=== PATIENT | male | born 1970 | race African-American/Black ===

== ENCOUNTER 2023-01-10 13:31 | Inpatient (IN) ==
[2023-01-10] MEDS ORDERED: SODIUM CHLORIDE 0.9% 1,000 ML IV ONE ×3 (14:27→18:34)
[2023-01-10 14:31] LABS: Basophils # (auto) 0.01 K/uL (0.00-0.20); Basophils % (auto) 0.1 %; Eosinophils # (auto) 0.01 K/uL (0.00-0.50); Eosinophils % (auto) 0.1 %; Hematocrit (blood only) 42.5 % (42.0-52.0); Hemoglobin 15.1 g/dl (14.0-18.0); Immature Granulocytes # (auto) 0.03 K/uL (0.01-0.20); Immature Granulocytes % (auto) 0.4 %; Lymphocytes # (auto) 1.12 K/uL (1.20-3.40); Lymphocytes % (auto) 16.5 %; Mean Corpuscular Hemoglobin 29.2 pg (25.0-34.0); Mean Corpuscular Hgb Conc 35.5 g/dL (32.0-36.0); Monocytes # (auto) 0.31 K/uL (0.11-0.59); Monocytes % (auto) 4.6 %; Neutrophils # (auto) 5.29 K/uL (1.40-6.50); Neutrophils % (auto) 78.3 %; Platelet Count 212 K/uL (130-400); RDW Coefficient of Variation 11.3 % (11.5-14.5); RDW Standard Deviation 33.8 fL (36.4-46.3); Red Blood Count 5.18 M/uL (4.70-6.10); White Blood Count 6.77 K/ul (4.8-10.8)
[2023-01-10] MEDS ORDERED: NovoLIN-R INSULIN PER UNIT CHARGE IV STA (14:35)
[2023-01-10 14:39] LABS: Partial Thromboplastin Ratio 0.8; Partial Thromboplastin Time 23.9 Seconds (21.0-31.0)
[2023-01-10 14:43] LABS: Base Excess VBG -0.2 mEq/L; HCO3 VBG 25 mmol/L; Oxygen Saturation VBG 88.9 %; PCO2 VBG 41 mmHg (38-50); PO2 VBG 57 mmHg; pH VBG 7.39 (7.36-7.41)
--- NOTE | 2023-01-10 14:48 | Emergency Department Note ---
Impression & Plan Hyperosmolar hyperglycemic state (HHS), Hyperglycemia due to type 2 diabetes mellitus, [place] (acute kidney injury), Acute hyperkalemia ED Provider Note Provider: Clifford Easley MD DATE OF SERVICE: 01/10/2023 CHIEF COMPLAINT: Urinating frequently, high blood sugar HISTORY OF PRESENT ILLNESS: Patient is a 52-year-old gentleman reported history of CHF presenting from the half-way due to 3 days of increased urination. Found to the present of high blood sugars and glucose in his urine. Patient states he has been having some increased weakness but denies any pain. Denies falls. Has been having lots of sugary drinks which is not abnormal for him. States he has no history of diabetes for the last 3 days has been urinating frequently. States he feels quite thirsty. Denies any swelling. States he feels generally weak and quite thirsty again. PAST MEDICAL HISTORY: As noted above MEDICATIONS: Reviewed medication list from the facility with metformin prescribed today but he has not taken the SOCIAL HISTORY: Inmate at the [facility] PHYSICAL EXAM: GENERAL: alert and oriented in no acute distress on stretcher guards at bedside, appears fatigued arousable but a little bit drowsy Head: normocephalic and atraumatic EYES: No injection, discharge or icterus. NECK: Trachea midline. ENT: Mucous membranes pink but dry in nature LUNGS: Airway patent. No retractions or tachypnea noted HEART: Regular rate and rhythm. No chest wall tenderness ABDOMEN: Soft and non-tender, without guarding or rebound. SKIN: Acyanotic, warm, dry, without rashes EXTREMITIES: Without swelling, tenderness or deformity NEUROLOGICAL: No focal deficits. No aphasia. No facial droop or slurred speech. EK bpm normal sinus rhythm. No PVC or PAC with left axis. QTc 415. No acute ST segment elevation noted. CONTINUOUS CARDIAC MONITORING: was ordered and showed a heart rate of 70s bpm in NSR Patient's laboratory studies and imaging reviewed. Differential includes Infection, dehydration, metabolic abnormality, hypo/hyperglycemia, electrolyte disturbance, anemia, hypoxia, cardiac sources, intracerebral event, toxicologic, neurologic, as well as other pathologies. IMPRESSION/MEDICAL DECISION MAKING: Denies fever. Reports urinary frequency and a bit of dysuria with high blood sugars found at the present. No history of diabetes. 3 days of symptoms. May be new onset diabetes. Not significantly tachypneic but somewhat weak in nature. History of CHF reported but appears volume down at this time. Ordered some IV fluid. Ordered some insulin. Blood work VBG A1c was ordered. Do not see any stigmata of significant CHF at this time and believe he again can receive IV fluids. Blood obtained here without significant anemia or leukocytosis. I doubt sepsis. VBG without acidosis and a normal bicarb is noted. I doubt this represents DKA with this finding. Urinalysis shows glucose some blood and trace ketones. Believe likely new onset diabetes with hyperglycemia. Laboratory studies returned with pseudohyponatremia that corrects to the low normal range in the 30- 35 area. Significant glucose elevation of 954. No evidence of hepatitis or pancreatitis with an anion gap Of 12 a creatinine 1.59 and a significant potassium of 6.5. Given this insulin drip was ordered. Ordered some Plasma- Lyte for continued IV hydration being cautious in light of his history by report of CHF. Did order gram calcium gluconate as well as an amp of bicarbonate for hyperkalemia but the insulin drip should help correct this as well. Given his frequent urination here including urinating onto the bed and frequently wetting himself [place] catheter was placed. Requires admission. Repeat BMP ordered. Is somewhat drowsy but arousable here and believe this likely represents more of an HHS picture. Develops a little bit of hypoxia but denying shortness of breath nursing placed on 2 L of nasal Supplementation. X-ray was ordered. Possibly some vascular congestion developing. Repeat BMP shows improving glucose but hyperkalemia persist. Given additional bicarb. Is maintained in the insulin drip and the hospitalist team is admitting to the hospital. I doubt the patient suffering from pneumonia or PE. DIAGNOSIS: HHS, [place], hyperkalemia, pseudohyponatremia DISPOSITION: Hospitalist will evaluate Patient was agreeable with this plan. Critical Care I have personally spent 33 minutes of critical care time in the direct m anagement of this patient. This includes bedside care, interpretation of diagnostic studies, and testing, discussion with consultants, patient, and other required patient management activities. These 33 minutes is in excess of all separately billable procedures. Past Med/Surg History Medical History HLD (hyperlipidemia) HTN (hypertension) Family History Mother Coronary heart disease Diabetes Other Kidney disease Social History Smoking Status: Current every day smoker Tobacco Type: E-cigarettes / Vaping Cigarettes Per Day: 1 e-cigarette per day; Hx Alcohol Use: No Hx Substance Use: Yes Last Used Substance: Unknown Preferred Language: Eritrean Communication Ability: Effective Cushion Gum Applicator Required: No Beliefs That Will Affect Care: None Current Living Situation: Other Current Living Situation Comment: correctional facility Assistive Devices: Glasses Allergies Allergies Allergy/AdvReac Type Severity Reaction Status Date / Time No Known Allergies Allergy Verified 01/10/23 16:06 Home Meds Home Medications Medication Instructions Recorded Confirmed atorvastatin 10 mg tablet (Lipitor) 10 mg PO HS 01/10/23 01/10/23 carvedilol 3.125 mg tablet 3.125 mg PO BID 01/10/23 01/10/23 lisinopril 20 mg tablet 20 mg PO DAILY 01/10/23 01/10/23 metformin 500 mg tablet 500 mg PO BID 01/10/23 01/10/23 Results & Data (ED) Vital Signs Vital Signs - 24 hr 01/10/23 13:41 01/10/23 14:26 01/10/23 14:29 Temperature 36.7 C Temperature Source Oral Pulse Rate 83 74 Pulse Rate [Apical] 78 Pulse Rate from SpO2 Sensor Respiratory Rate 16 18 22 Respiratory Effort / Characteristics Non-Labored Spontaneous Non-Labored Spontaneous Respiratory Depth Normal Normal Respiratory Pattern Regular Regular Blood Pressure 183/102 H Blood Pressure [Right Arm] 161/86 H Blood Pressure Mean 129 Blood Pressure Mean [Right Arm] 111 Blood Pressure Position Semi-fowlers Blood Pressure Position [Right Arm] Semi-fowlers Pulse Oximetry 98 Oxygen Delivery Method Room Air Sepsis Recent Fever Within 48 Hours No Sepsis New/Unexplained Change in Mental Status No Sepsis Action Taken by Nursing No Action Required 01/10/23 15:01 01/10/23 15:01 01/10/23 15:15 Temperature Temperature Source Pulse Rate 87 90 Pulse Rate [Apical] Pulse Rate from SpO2 Sensor Respiratory Rate 19 18 Respiratory Effort / Characteristics Respiratory Depth Respiratory Pattern Blood Pressure 173/92 H Blood Pressure [Right Arm] Blood Pressure Mean 122 Blood Pressure Mean [Right Arm] Blood Pressure Position Blood Pressure Position [Right Arm] Pulse Oximetry Oxygen Delivery Method Sepsis Recent Fever Within 48 Hours Sepsis New/Unexplained Change in Mental Status Sepsis Action Taken by Nursing 01/10/23 15:30 01/10/23 15:37 01/10/23 15:37 Temperature Temperature Source Pulse Rate 84 87 Pulse Rate [Apical] Pulse Rate from SpO2 Sensor Respiratory Rate 21 18 Respiratory Effort / Characteristics Respiratory Depth Respiratory Pattern Blood Pressure 147/81 H Blood Pressure [Right Arm] Blood Pressure Mean 99 Blood Pressure Mean [Right Arm] Blood Pressure Position Blood Pressure Position [Right Arm] Pulse Oximetry Oxygen Delivery Method Sepsis Recent Fever Within 48 Hours Sepsis New/Unexplained Change in Mental Status Sepsis Action Taken by Nursing 01/10/23 15:45 01/10/23 16:04 01/10/23 16:05 Temperature Temperature Source Pulse Rate 83 67 Pulse Rate [Apical] Pulse Rate from SpO2 Sensor 83 Respiratory Rate 23 20 Respiratory Effort / Characteristics Respiratory Depth Respiratory Pattern Blood Pressure 114/47 L Blood Pressure [Right Arm] Blood Pressure Mean 72 Blood Pressure Mean [Right Arm] Blood Pressure Position Blood Pressure Position [Right Arm] Pulse Oximetry 97 Oxygen Delivery Method Sepsis Recent Fever Within 48 Hours Sepsis New/Unexplained Change in Mental Status Sepsis Action Taken by Nursing 01/10/23 16:05 01/10/23 16:15 01/10/23 16:15 Temperature Temperature Source Pulse Rate 78 74 Pulse Rate [Apical] Pulse Rate from SpO2 Sensor 75 Respiratory Rate 19 19 Respiratory Effort / Characteristics Respiratory Depth Respiratory Pattern Blood Pressure 102/82 Blood Pressure [Right Arm] Blood Pressure Mean 86 Blood Pressure Mean [Right Arm] Blood Pressure Position Blood Pressure Position [Right Arm] Pulse Oximetry 92 Oxygen Delivery Method Sepsis Recent Fever Within 48 Hours Sepsis New/Unexplained Change in Mental Status Sepsis Action Taken by Nursing 01/10/23 16:30 01/10/23 16:30 Temperature Temperature Source Pulse Rate 80 Pulse Rate [Apical] Pulse Rate from SpO2 Sensor Respiratory Rate 18 Respiratory Effort / Characteristics Respiratory Depth Respiratory Pattern Blood Pressure 125/79 Blood Pressure [Right Arm] Blood Pressure Mean 94 Blood Pressure Mean [Right Arm] Blood Pressure Position Blood Pressure Position [Right Arm] Pulse Oximetry Oxygen Delivery Method Sepsis Recent Fever Within 48 Hours Sepsis New/Unexplained Change in Mental Status Sepsis Action Taken by Nursing Laboratory Data 01/10/23 13:47 01/10/23 13:47 Lab Results 01/10/23 01/10/23 01/10/23 Range/Units 13:41 13:47 13:47 WBC 6.77 (4.8-10.8) K/ul RBC 5.18 (4.70-6.10) M/uL Hgb 15.1 (14.0-18.0) g/dl Hct 42.5 (42.0-52.0) % MCV 82.0 (80.0-100.0) fL MCH 29.2 (25.0-34.0) pg MCHC 35.5 (32.0-36.0) g/dL RDW Std Deviation 33.8 L (36.4-46.3) fL RDW Coeff of Martina 11.3 L (11.5-14.5) % Plt Count 212 (130-400) K/uL MPV 13.0 H (9.4-12.4) fL Immature Gran % (Auto) 0.4 % Neut % (Auto) 78.3 % Lymph % (Auto) 16.5 % [place] % (Auto) 4.6 % Eos % (Auto) 0.1 % Baso % (Auto) 0.1 % Neut # (Auto) 5.29 (1.40-6.50) K/uL Lymph # (Auto) 1.12 L (1.20-3.40) K/uL [place] # (Auto) 0.31 (0.11-0.59) K/uL Eos # (Auto) 0.01 (0.00-0.50) K/uL Baso # (Auto) 0.01 (0.00-0.20) K/uL Immature Gran # (Auto) 0.03 (0.01-0.20) K/uL APTT 23.9 (21.0-31.0) Seconds PTT Ratio 0.8 VBG pH (7.36-7.41) VBG pCO2 (38-50) mmHg VBG pO2 mmHg VBG HCO3 mmol/L VBG O2 Saturation % VBG Base Excess mEq/L Sodium (136-145) mmol/L Potassium (3.5-5.1) mmol/L Chloride (98-107) mmol/L Carbon Dioxide (21-32) mmol/L Anion Gap (3-11) BUN (6-23) mg/dl Creatinine (0.6-1.4) mg/dl Est Cr Clr Drug Dosing ml/min Est GFR ( Amer) ml/min Est GFR (Non-Af Amer) ml/min BUN/Creatinine Ratio (10-20) Glucose (70-99(Fasting)) mg/dl POC Glucose > 600 H* (70-99) mg/dl Osmolality (280-300) mOsm/kg Calcium (8.6-10.3) mg/dl Phosphorus (2.5-4.9) mg/dl Magnesium (1.7-2.4) mg/dl Total Bilirubin (0.2-1.0) mg/dl AST (13-39) U/L ALT (7-52) U/L Alkaline Phosphatase (34-104) U/L Total Protein (6.0-8.3) gm/dl Albumin (3.4-5.0) gm/dl Globulin (2.5-4.0) gm/dl Albumin/Globulin Ratio (0.9-2) Lipase (11-82) U/L Urine Color Urine Appearance (Clear) Urine pH (4.5-7.5) Ur Specific Daisy (1.000-1.030) Urine Protein (Negative) Urine Glucose (UA) (Negative) Urine Ketones (Negative) Urine Blood (Negative) Urine Nitrite (Negative) Urine Bilirubin (Negative) Urine Urobilinogen (Negative) Ur Leukocyte Esterase (Negative) Urine WBC (Auto) (0-5) /hpf Urine RBC (Auto) (0-4) /hpf U Hyaline Cast (Auto) (0-5) /lpf U Epithel Cells (Auto) (0-5) /lpf Urine Bacteria (Auto) (Negative) 01/10/23 01/10/23 01/10/23 Range/Units 13:47 13:47 14:07 WBC (4.8-10.8) K/ul RBC (4.70-6.10) M/uL Hgb (14.0-18.0) g/dl Hct (42.0-52.0) % MCV (80.0-100.0) fL MCH (25.0-34.0) pg MCHC (32.0-36.0) g/dL RDW Std Deviation (36.4-46.3) fL RDW Coeff of Martina (11.5-14.5) % Plt Count (130-400) K/uL MPV (9.4-12.4) fL Immature Gran % (Auto) % Neut % (Auto) % Lymph % (Auto) % [place] % (Auto) % Eos % (Auto) % Baso % (Auto) % Neut # (Auto) (1.40-6.50) K/uL Lymph # (Auto) (1.20-3.40) K/uL [place] # (Auto) (0.11-0.59) K/uL Eos # (Auto) (0.00-0.50) K/uL Baso # (Auto) (0.00-0.20) K/uL Immature Gran # (Auto) (0.01-0.20) K/uL APTT (21.0-31.0) Seconds PTT Ratio VBG pH (7.36-7.41) VBG pCO2 (38-50) mmHg VBG pO2 mmHg VBG HCO3 mmol/L VBG O2 Saturation % VBG Base Excess mEq/L Sodium 116 L* (136-145) mmol/L Potassium 6.5 H* (3.5-5.1) mmol/L Chloride 82 L (98-107) mmol/L Carbon Dioxide 22 (21-32) mmol/L Anion Gap 12 H (3-11) BUN 46 H (6-23) mg/dl Creatinine 1.59 H (0.6-1.4) mg/dl Est Cr Clr Drug Dosing 61.0 ml/min Est GFR ( Amer) 57.4 ml/min Est GFR (Non-Af Amer) 49.5 ml/min BUN/Creatinine Ratio 28.9 H (10-20) Glucose 954 H* (70-99(Fasting)) mg/dl POC Glucose (70-99) mg/dl Osmolality 317 H (280-300) mOsm/kg Calcium 9.3 (8.6-10.3) mg/dl Phosphorus 4.9 (2.5-4.9) mg/dl Magnesium 2.4 (1.7-2.4) mg/dl Total Bilirubin 0.9 (0.2-1.0) mg/dl AST 18 (13-39) U/L ALT 34 (7-52) U/L Alkaline Phosphatase 57 (34-104) U/L Total Protein 7.6 (6.0-8.3) gm/dl Albumin 4.2 (3.4-5.0) gm/dl Globulin 3.4 (2.5-4.0) gm/dl Albumin/Globulin Ratio 1.2 (0.9-2) Lipase 88 H (11-82) U/L Urine Color Yellow Urine Appearance Clear (Clear) Urine pH 5.5 (4.5-7.5) Ur Specific Daisy 1.027 (1.000-1.030) Urine Protein Negative (Negative) Urine Glucose (UA) 3+ H (Negative) Urine Ketones Trace H (Negative) Urine Blood 2+ H (Negative) Urine Nitrite Negative (Negative) Urine Bilirubin Negative (Negative) Urine Urobilinogen Negative (Negative) Ur Leukocyte Esterase Negative (Negative) Urine WBC (Auto) 0 (0-5) /hpf Urine RBC (Auto) 5-10 H (0-4) /hpf U Hyaline Cast (Auto) 0 (0-5) /lpf U Epithel Cells (Auto) 0-5 (0-5) /lpf Urine Bacteria (Auto) Negative (Negative) 01/10/23 01/10/23 01/10/23 Range/Units 14:32 15:35 16:25 WBC (4.8-10.8) K/ul RBC (4.70-6.10) M/uL Hgb (14.0-18.0) g/dl Hct (42.0-52.0) % MCV (80.0-100.0) fL MCH (25.0-34.0) pg MCHC (32.0-36.0) g/dL RDW Std Deviation (36.4-46.3) fL RDW Coeff of Martina (11.5-14.5) % Plt Count (130-400) K/uL MPV (9.4-12.4) fL Immature Gran % (Auto) % Neut % (Auto) % Lymph % (Auto) % [place] % (Auto) % Eos % (Auto) % Baso % (Auto) % Neut # (Auto) (1.40-6.50) K/uL Lymph # (Auto) (1.20-3.40) K/uL [place] # (Auto) (0.11-0.59) K/uL Eos # (Auto) (0.00-0.50) K/uL Baso # (Auto) (0.00-0.20) K/uL Immature Gran # (Auto) (0.01-0.20) K/uL APTT (21.0-31.0) Seconds PTT Ratio VBG pH 7.39 (7.36-7.41) VBG pCO2 41 (38-50) mmHg VBG pO2 57 mmHg VBG HCO3 25 mmol/L VBG O2 Saturation 88.9 % VBG Base Excess -0.2 mEq/L Sodium 125 L D (136-145) mmol/L Potassium 6.7 H* (3.5-5.1) mmol/L Chloride 88 L (98-107) mmol/L Carbon Dioxide 29 (21-32) mmol/L Anion Gap 8 (3-11) BUN 45 H (6-23) mg/dl Creatinine 1.66 H (0.6-1.4) mg/dl Est Cr Clr Drug Dosing 58.4 ml/min Est GFR ( Amer) 54.5 ml/min Est GFR (Non-Af Amer) 47.0 ml/min BUN/Creatinine Ratio 27.1 H (10-20) Glucose 655 H* (70-99(Fasting)) mg/dl POC Glucose > 600 H* (70-99) mg/dl Osmolality (280-300) mOsm/kg Calcium 9.9 (8.6-10.3) mg/dl Phosphorus (2.5-4.9) mg/dl Magnesium (1.7-2.4) mg/dl Total Bilirubin (0.2-1.0) mg/dl AST (13-39) U/L ALT (7-52) U/L Alkaline Phosphatase (34-104) U/L Total Protein (6.0-8.3) gm/dl Albumin (3.4-5.0) gm/dl Globulin (2.5-4.0) gm/dl Albumin/Globulin Ratio (0.9-2) Lipase (11-82) U/L Urine Color Urine Appearance (Clear) Urine pH (4.5-7.5) Ur Specific Daisy (1.000-1.030) Urine Protein (Negative) Urine Glucose (UA) (Negative) Urine Ketones (Negative) Urine Blood (Negative) Urine Nitrite (Negative) Urine Bilirubin (Negative) Urine Urobilinogen (Negative) Ur Leukocyte Esterase (Negative) Urine WBC (Auto) (0-5) /hpf Urine RBC (Auto) (0-4) /hpf U Hyaline Cast (Auto) (0-5) /lpf U Epithel Cells (Auto) (0-5) /lpf Urine Bacteria (Auto) (Negative) Administered Medications Carvedilol (Carvedilol 3.125 Mg Tab) 3.125 mg PO BIDM [facility] Stop: 02/09/23 20:59 Last Admin: 01/10/23 19:39 Dose: 3.125 mg Documented By: MejiaT Enoxaparin Sodium (Enoxaparin Inj 40 Mg/0.4 Ml Syr) 40 mg SQ HS [facility] Stop: 02/09/23 20:59 Last Admin: 01/10/23 19:40 Dose: 40 mg Documented By: SILVESTRE Insulin Human Regular 250 (units/ Sodium Chloride) 250 mls @ 4.2 mls/hr IV .Q24H [facility]; Protocol Stop: 02/09/23 15:44 Last Titration: 01/10/23 20:30 Dose: 3.4 units/hr, 3.4 mls/hr Documented By: SILVESTRE Co-signed By: VK Titration: 01/10/23 19:34 Dose: 4.2 units/hr, 4.2 mls/hr Documented By: JPaula Co-signed By: VK Titration: 01/10/23 19:05 Dose: 5.2 units/hr, 5.2 mls/hr Documented By: SILVESTRE Co-signed By: ES Titration: 01/10/23 18:11 Dose: 5.2 units/hr, 5.2 mls/hr Documented By: DS Co-signed By: LCD Titration: 01/10/23 17:35 Dose: 4.3 units/hr, 4.3 mls/hr Documented By: JESSICA Co-signed By: AB Admin: 01/10/23 16:13 Dose: 3.6 units/hr, 3.6 mls/hr Documented By: DS Co-signed By: AP Sodium Chloride (Nss) 1,000 mls @ 125 mls/hr IV .Q8H NUNU Stop: 02/09/23 17:29 Last Admin: 01/10/23 20:21 Dose: 125 mls/hr Documented By: SILVESTRE Insulin Aspart (Insulin Aspart Per Unit Charge) 0 units SC ACHS NUNU Stop: 02/09/23 16:29 Last Admin: 01/10/23 19:59 Dose: Not Given Documented By: Admin: 01/10/23 19:38 Dose: Not Given Documented By: SILVESTRE Discontinued Medications Sodium Chloride (Nss) 1,000 mls @ 999 mls/hr IV .Q1H1M ONE Stop: 01/10/23 15:27 Last Infusion: 01/10/23 16:42 Dose: 0 mls/hr Documented By: Admin: 01/10/23 14:47 Dose: 999 mls/hr Documented By: WALLACE Parenteral Electrolytes (Plasma-Lyte A Ph 7.4) 1,000 mls @ 125 mls/hr IV .Q8H NUNU Stop: 02/09/23 15:44 Last Admin: 01/10/23 16:48 Dose: 125 mls/hr Documented By: JESSICA Calcium Gluconate () 1,000 mg in 60 mls @ 240 mls/hr IV NOW STA Stop: 01/10/23 16:09 Last Infusion: 01/10/23 17:53 Dose: 0 mls/hr Documented By: Admin: 01/10/23 16:42 Dose: 240 mls/hr Documented By: JESSICA Sodium Chloride (Nss) 1,000 mls @ 999 mls/hr IV .Q1H1M ONE Stop: 01/10/23 16:57 Last Infusion: 01/10/23 17:53 Dose: 0 mls/hr Documented By: Admin: 01/10/23 16:42 Dose: 999 mls/hr Documented By: JESSICA Sodium Chloride (Nss) 1,000 mls @ 999 mls/hr IV .Q1H1M ONE Stop: 01/10/23 19:34 Last Admin: 01/10/23 19:25 Dose: 999 mls/hr Documented By: SILVESTRE Insulin Human Regular (Novolin-R Insulin Per Unit Charge) 10 units IV NOW STA Stop: 01/10/23 14:36 Last Admin: 01/10/23 14:47 Dose: 10 units Documented By: WALLACE Co-signed By: PONCE Miscellaneous (Insulin Protocol Goal Range ) 1 each N/A ONE ONE Stop: 01/10/23 15:40 Last Admin: 01/10/23 19:37 Dose: Not Given Documented By: SILVESTRE Miscellaneous (Severe Stress Level ) 1 each N/A ONE ONE Stop: 01/10/23 15:40 Last Admin: 01/10/23 19:38 Dose: Not Given Documented By: SILVESTRE Sodium Bicarbonate (Sodium Bicarb 8.4% Inj 50 Meq/50 Ml Syr) 50 meq IV NOW STA Stop: 01/10/23 15:56 Last Admin: 01/10/23 16:42 Dose: 50 meq Documented By: JESSICA Sodium Bicarbonate (Sodium Bicarb 8.4% Inj 50 Meq/50 Ml Syr) 50 meq IV NOW STA Stop: 01/10/23 17:28 Last Admin: 01/10/23 18:12 Dose: 50 meq Documented By: JESSICA Imaging Data Radiologist's Impression: Chest X-Ray 01/10/23 16:29 SINGLE VIEW CHEST CLINICAL HISTORY: Hypoxia. FINDINGS: An AP, portable, upright chest radiograph is obtained. No prior studies are available for comparison at the time of dictation. The heart appears mildly enlarged. There is prominence of the pulmonary vasculature. No airspace consolidation or large pleural effusion is identified. No pneumothorax is seen. The bony thorax is grossly intact. IMPRESSION: 1. The heart appears mildly enlarged and there is prominence of the pulmonary vasculature. Correlate clinically for evidence of fluid overload/congestive change. 2. No airspace consolidation or large pleural effusion is identified. ACT 112: Negative or not required by law. Electronically signed by: Cyrus Melo M.D. 01/10/2023 4:50 PM Discharge Plan Visit Data Chief Complaint: Hyperglycemia Stated Complaint: HYPERGLYCEMIA, URINARY SX ED Provider: Clifford Easley Discharge Problem: Hyperosmolar hyperglycemic state (HHS), Hyperglycemia due to type 2 diabetes mellitus, [place] (acute kidney injury), Acute hyperkalemia Patient Disposition: Being Evaluated by Hospitalist Condition: Fair Discharge Instructions Interventions: ED Discharge Assessment Last Done: 01/10/23 20:30 Hyperglycemia due to type 2 diabetes mellitus Qualifiers: Diabetes mellitus correction insulin use: with exterminator termite use Qualified Code(s): E11.65 - Type 2 diabetes mellitus with hyperglycemia
[2023-01-10 14:50] LABS: Appearance Urine Clear (Clear); Bilirubin Urine Negative (Negative); Blood Urine 2+ (Negative); Color Urine Yellow; Glucose Urine UA 3+ (Negative); Ketones Urine Trace (Negative); Leukocyte Esterase Urine Negative (Negative); Nitrite Urine Negative (Negative); Protein Urine Negative (Negative); Specific Gravity Urine 1.027 (1.000-1.030); Urobilinogen Urine Negative (Negative); pH Urine 5.5 (4.5-7.5)
[2023-01-10 15:24] LABS: Bacteria Urine Automated Negative (Negative); Cast Urine Automated 0 /lpf (0-5); Epithelial Cell Urine Auto 0-5 /lpf (0-5); WBC Urine Automated 0 /hpf (0-5)
[2023-01-10 15:34] LABS: Albumin Globulin Ratio 1.2 (0.9-2); Albumin Level 4.2 gm/dl (3.4-5.0); BUN Creatinine Ratio 28.9 (10-20); Bilirubin,Total 0.9 mg/dl (0.2-1.0); Calcium 9.3 mg/dl (8.6-10.3); Est GFR (African American) 57.4 ml/min; Est GFR (Non-African American) 49.5 ml/min; Globulin 3.4 gm/dl (2.5-4.0); Potassium 6.5 mmol/L (3.5-5.1); Total Protein 7.6 gm/dl (6.0-8.3)
[2023-01-10] MEDS ORDERED: STAT IV Infusion **Titration per Protocol STA (15:39)
[2023-01-10] MEDS ORDERED: INSULIN PROTOCOL GOAL RANGE ONE (15:39)
[2023-01-10] MEDS ORDERED: SEVERE STRESS LEVEL ONE (15:39)
[2023-01-10] MEDS ORDERED: GLUCOSE 40% GEL 15 GM TUBE PO PRN (15:45)
[2023-01-10] MEDS ORDERED: GLUCAGON FOR INJ 1 MG VIAL IM PRN (15:45)
[2023-01-10] MEDS ORDERED: CARBOHYDRATES FOR HYPOGLYCEMIA PO PRN (15:45)
[2023-01-10] MEDS ORDERED: DEXTROSE 50% 50 ML SYRINGE IV PRN (15:45)
[2023-01-10] MEDS ORDERED: PLASMA-LYTE A 1,000 ML IV SCH (15:45)
[2023-01-10] MEDS ORDERED: GLUCOSE 10 TAB/TUBE PO PRN (15:45)
[2023-01-10] MEDS ORDERED: SODIUM BICARB 8.4% INJ 50 MEQ/50 ML SYR IV STA ×2 (15:55→17:27)
[2023-01-10] MEDS ORDERED: CALCIUM GLUCONATE 1,000 MG/60 ML BAG IV STA (15:55)
[2023-01-10] MEDS: INSULIN REGULAR 250 UNITS in SODIUM CHLORIDE 0.9% 247.5 ML IV SCH (16:13)
[2023-01-10 16:17] LABS: Magnesium 2.4 mg/dl (1.7-2.4)
[2023-01-10 16:22] LABS: Phosphorus 4.9 mg/dl (2.5-4.9)
--- NOTE | 2023-01-10 16:35 | History & Physical Report ---
Date of Service January 10, 2023 Assessment & Plan (1) Hyperosmolar hyperglycemic state (HHS): (2) Pseudohyponatremia: (3) Acute hyperkalemia: (4) CAROLINA (acute kidney injury): (5) Dehydration: (6) HTN (hypertension): (7) HLD (hyperlipidemia): (8) Hyperglycemia due to type 2 diabetes mellitus: Plan 52 yr old M who has a significant PMH of HTN and HLD presents to ED 2/2 frequent urinating, difficulty urinating and incontinence over last 3 days. He is incarcerated at [facility] longterm. He states he was diagnosed with type 2 diabetes 3 weeks ago. HHS T2DM -newly dx 3 weeks ago admit to ICU 2/2 HHS and electrolyte derangements requiring freq lab monitoring continue Insulin gtt per protocol, glycemic pharmacist consulted consult Dr. Baltazar, energy management specialist, please refer to ICU consultation regarding further assessment and plan serial labs NSS 125cc/hr, switch to 1/2 NSS + 20meq KCL when K below 5.1 pending fluid orders also for when pt reaches goal range of 250-[address], strict intake and out admitting CXR ? congestive change, cardiomegaly will obtain BNP, and repeat CXR in a.m. monitor volume status closely in setting of hydration neurochecks q4 Acute Hyperkalemia K initially 6.5, repeat 4 hrs later 6.7 he did receive 1g calcium gluconate and 50meq amp of bicarb without much improvement pt received insulin bolus, gtt, anticipate further reduction of K with reduction of blood sugar switch fluids to NSS repeat K at 1830 due to persistent electrolyte derangements will admit to ICU for further management CAROLINA unknown baseline cr; however currently elevated to 1.66 suspect in setting of dehydration serial bmp continue IVF ealry cath in place Pseudohyponatremia initial ma 116, corrected 130 repeat corrected 135 continue to monitor HTN on lisinopril as outpatient chronic, stable HLD continue statin chronic, stable DVT ppx: Lovenox, monitor renal function if worsens may need to convert to heparin FULL CODE Dispo: from [facility], to return once medically stable Pt was seen and examined in collaboration with Dr. Lorenzo, please see addendum History of Present Illness Chief Complaint: Frequent urination Primary Care Provider: [facility] 52 yr old M who has a significant PMH of HTN and HLD presents to ED 2/2 frequent urinating, difficulty urinating and incontinence over last 3 days. He is incarcerated at [facility]. He states he was diagnosed with type 2 diabetes 3 weeks ago. He was just prescribed metformin but has not yet started it. He states he was told he was, "borderline." He states symptoms started approximately 3 days ago whenever he developed frequent urination and inability to hold urine. "It was just running out." He states he was urinating on himself. He denies any recent illness, fever, chills, sweats, lightheadedness, dizziness, chest pain, shortness of breath, vomiting or diarrhea. He does admit to being slightly nauseated. He is very drowsy and states that he has not slept well over the last 2 days due to urinating. In ED patient found to have a blood sugar of 100. He was also found to have a pseudohyponatremia with a sodium of 116 but corrected to 130. He had hyperkalemia with a potassium of 6.5 and an CAROLINA with a creatinine 1.59. In ED he received 1 L of fluid bolus and started on maintenance Plasma-Lyte. He also received 1 g calcium gluconate and sodium bicarb for hyperkalemia. He was started on insulin bolus and drip. ROS slightly unreliable due to pt drowsy state. Unable to obtain surgical/social/FH other than pt being incarcerated. Allergies Allergy/AdvReac Type Severity Reaction Status Date / Time No Known Allergies Allergy Verified 01/10/23 16:06 Home Medications Medication Instructions Recorded Confirmed Type atorvastatin 10 mg tablet (Lipitor) 10 mg PO HS 01/10/23 01/10/23 History carvedilol 3.125 mg tablet 3.125 mg PO BID 01/10/23 01/10/23 History lisinopril 20 mg tablet 20 mg PO DAILY 01/10/23 01/10/23 History metformin 500 mg tablet 500 mg PO BID 01/10/23 01/10/23 History Past Med/Surg History Medical History HLD (hyperlipidemia) HTN (hypertension) Family History Mother Coronary heart disease Diabetes Other Kidney disease Social History Smoking Status: Current every day smoker Tobacco Type: E-cigarettes / Vaping Cigarettes Per Day: 1 e-cigarette per day; Hx Alcohol Use: No Hx Substance Use: Yes Last Used Substance: Unknown Preferred Language: [place] Communication Ability: Effective Tea Blender Required: No Beliefs That Will Affect Care: None Current Living Situation: Other Current Living Situation Comment: correctional facility Assistive Devices: Glasses Review of Systems Review of Systems: All systems reviewed & are unremarkable except as noted in HPI & below Physical Exam Physical Exam: Please refer to Dr. Lorenzo addendum for physical exam findings. Results & Data Results & Data Vital Signs (Past 12 Hours) Vital Signs Temp Pulse Pulse Resp BP BP Pulse Ox 01/10/23 14:26 78 18 161/86 H 01/10/23 13:41 36.7 C 83 16 183/102 H 98 O2 Del Method 01/10/23 14:26 01/10/23 13:41 Room Air Diagnostic Findings Chest X-Ray 01/10/23 16:29 SINGLE VIEW CHEST CLINICAL HISTORY: Hypoxia. FINDINGS: An AP, portable, upright chest radiograph is obtained. No prior studies are available for comparison at the time of dictation. The heart appears mildly enlarged. There is prominence of the pulmonary vasculature. No airspace consolidation or large pleural effusion is identified. No pneumothorax is seen. The bony thorax is grossly intact. IMPRESSION: 1. The heart appears mildly enlarged and there is prominence of the pulmonary vasculature. Correlate clinically for evidence of fluid overload/congestive change. 2. No airspace consolidation or large pleural effusion is identified. ACT 112: Negative or not required by law. Electronically signed by: Cyrus Melo M.D. 01/10/2023 4:50 PM Medications Administered Medication List Insulin Human Regular 250 (units/ Sodium Chloride) 250 mls @ 3.6 mls/hr IV .Q24H NUNU; Protocol Stop: 02/09/23 15:44 Last Admin: 01/10/23 16:13 Dose: 3.6 units/hr, 3.6 mls/hr Documented By: JESSICA Co-signed By: JONEL Parenteral Electrolytes (Plasma-Lyte A Ph 7.4) 1,000 mls @ 125 mls/hr IV .Q8H NUNU Stop: 02/09/23 15:44 Last Admin: 01/10/23 16:48 Dose: 125 mls/hr Documented By: JESSICA Discontinued Medications Sodium Chloride (Nss) 1,000 mls @ 999 mls/hr IV .Q1H1M ONE Stop: 01/10/23 15:27 Last Infusion: 01/10/23 16:42 Dose: 0 mls/hr Documented By: Admin: 01/10/23 14:47 Dose: 999 mls/hr Documented By: WALLACE Calcium Gluconate () 1,000 mg in 60 mls @ 240 mls/hr IV NOW STA Stop: 01/10/23 16:09 Last Admin: 01/10/23 16:42 Dose: 240 mls/hr Documented By: JESSICA Sodium Chloride (Nss) 1,000 mls @ 999 mls/hr IV .Q1H1M ONE Stop: 01/10/23 16:57 Last Admin: 01/10/23 16:42 Dose: 999 mls/hr Documented By: JESSICA Insulin Human Regular (Novolin-R Insulin Per Unit Charge) 10 units IV NOW STA Stop: 01/10/23 14:36 Last Admin: 01/10/23 14:47 Dose: 10 units Documented By: WALLACE Co-signed By: PONCE Sodium Bicarbonate (Sodium Bicarb 8.4% Inj 50 Meq/50 Ml Syr) 50 meq IV NOW STA Stop: 01/10/23 15:56 Last Admin: 01/10/23 16:42 Dose: 50 meq Documented By: JESSICA ECG Rate (beats per minute): 75 Rhythm: normal sinus Additional Comments: left axis deviation, no st or t wave change COVID-19 Results Results COVID-19 Adm Lab Results: RBC 5.18 M/uL (4.70-6.10) 01/10/23 WBC 6.77 K/ul (4.8-10.8) 01/10/23 Hgb 15.1 g/dl (14.0-18.0) 01/10/23 Hct 42.5 % (42.0-52.0) 01/10/23 Plt Count 212 K/uL (130-400) 01/10/23 Neutrophils (%) (Auto) 78.3 % 01/10/23 Lymphocytes (%) (Auto) 16.5 % 01/10/23 Monocytes # (Auto) 0.31 K/uL (0.11-0.59) 01/10/23 Eosinophils # (Auto) 0.01 K/uL (0.00-0.50) 01/10/23 Immature Granulocyte % (Auto) 0.4 % 01/10/23 Neutrophils # (Auto) 5.29 K/uL (1.40-6.50) 01/10/23 Lymphocytes # (Auto) 1.12 K/uL (1.20-3.40) L 01/10/23 Monocytes # (Auto) 0.31 K/uL (0.11-0.59) 01/10/23 Eosinophils # (Auto) 0.01 K/uL (0.00-0.50) 01/10/23 Basophils # (Auto) 0.01 K/uL (0.00-0.20) 01/10/23 Immature Granulocyte # (Auto) 0.03 K/uL (0.01-0.20) 3 Na 125 mmol/L (136-145) L 01/10/23 K 6.7 mmol/L (3.5-5.1) H* 01/10/23 Cl 88 mmol/L (98-107) L 01/10/23 CO2 29 mmol/L (21-32) 01/10/23 Anion Gap 8 (3-11) 01/10/23 BUN 45 mg/dl (6-23) H 01/10/23 Creatinine 1.66 mg/dl (0.6-1.4) H 01/10/23 BUN/Creatinine Ratio 27.1 (10-20) H 01/10/23 Glucose Level 655 mg/dl (70-99(Fasting)) H* 01/10/23 Ca 9.9 mg/dl (8.6-10.3) 01/10/23 Phosphorus Level 4.9 mg/dl (2.5-4.9) 01/10/23 Total Bilirubin 0.9 mg/dl (0.2-1.0) 01/10/23 AST/SGOT 18 U/L (13-39) 01/10/23 ALT/SGPT 34 U/L (7-52) 01/10/23 Alkaline Phosphatase 57 U/L (34-104) 01/10/23 Total Protein 7.6 gm/dl (6.0-8.3) 01/10/23 Albumin 4.2 gm/dl (3.4-5.0) 01/10/23 Globulin 3.4 gm/dl (2.5-4.0) 01/10/23 Albumin/Globulin Ratio 1.2 (0.9-2) 01/10/23 PTT 23.9 Seconds (21.0-31.0) 01/10/23 SARS-CoV-2, RNA, NAAT NEGATIVE (NEGATIVE) 01/10/23 Chest X-Ray 01/10/23 Code Status & VTE Plan Code Status FULL CODE Supervising Physician Co-Signing Physician Notes 52 year old man who reports recent diagnosis of DM presents from correctional facility with urinary freq over the past few days Reports some urinary incontinence and possible dysuria Patient was drowsy during exam but arousable. On exam, General: Drowsy but arousable Eyes: PERRL, conjunctivae normal, not pale, anicteric sclerae, EOM intact bilaterally ENMT: External ear and nose normal, oropharynx normal Respiratory: Normal respiratory effort, no respiratory distress, lungs clear to auscultation, no crackles and no wheezes Cardiovascular: RRR S1 S2 Gastrointestinal (Abdomen): Abdomen is not distended, soft, non-tender to palpation, no guarding, no palpable hepatosplenomegaly, normal bowel sounds Musculoskeletal: No pedal edema Genitourinary: Early in situ Neurologic: Drowsy but arousable, oriented to person, place. No focal deficits in power/sensory Psychiatric: Drowsy Labs notable for Na 116 (corrected for hyperglycemia: 130), K 6.5, Bicarb 22, Anion GAP 12, Cr 1.59, Glucose 954, Venous pH 7.39 Hyperglycemia vs HHS considering his drowsiness Check serum osmolality CAROLINA Hyperkalemia Got 2L NSS bolus in ER Repeat BMP show K of 6.7. Change IVF from plasmalyte to NSS Continue IVF and insulin drip per DKA/HHS protocol. Keep NPO for now Monitor BMP q4h Mointor electrolytes and replete as appropriate Neuro checks Check A1c (8) Hyperglycemia due to type 2 diabetes mellitus Diabetes mellitus custodial insulin use: with technician terminal and repeater use Qualified Code(s): E11.65 - Type 2 diabetes mellitus with hyperglycemia; Z79.4 - technician terminal and repeater (current) use of insulin
--- NOTE | 2023-01-10 16:51 | XRay Report ---
SINGLE VIEW CHEST CLINICAL HISTORY: Hypoxia. FINDINGS: An AP, portable, upright chest radiograph is obtained. No prior studies are available for c omparison at the time of dictation. The heart appears mildly enlarged. There is prominence of the pul monary vasculature. No airspace consolidation or large pleural effusion is identified. No pneumothora x is seen. The bony thorax is grossly intact. IMPRESSION: 1. The heart appears mildly enlarged and there is prominence of the pulmonary vasculature. Correlate clinically for evidence of fluid overload/congestive change. 2. No airspace consolidation or large pleural effusion is identified. ACT 112: Negative or not required by law. Electronically signed by: Cyrus eMlo M.D. 01/10/2023 4:50 PM
[2023-01-10 17:23] LABS: BUN Creatinine Ratio 27.1 (10-20); Calcium 9.9 mg/dl (8.6-10.3); Creatinine Clr Calc Pharmacy 58.4 ml/min; Est GFR (African American) 54.5 ml/min; Potassium 6.7 mmol/L (3.5-5.1)
[2023-01-10] MEDS ORDERED: SODIUM CHLORIDE 0.9% 1,000 ML IV SCH (17:30)
--- NOTE | 2023-01-10 18:48 | Critical Care Consultation ---
Date of Consultation January 10, 2023 Assessment & Plan (1) Hyperosmolar hyperglycemic state (HHS): (2) Acute hyperkalemia: (3) CAROLINA (acute kidney injury): (4) HTN (hypertension): (5) HLD (hyperlipidemia): Plan Reason Critically Ill: 52 YOM admitted to ICU for hyperkalemia and CAROLINA in the setting of HHS, currently receiving insulin therapy and volume replacment. Neuro - No acute needs CAM ICU: NEGATIVE - Continue with neurological examinations with volume replacement Cardiac - Hx of HTN, HF unspecified, HLD - Patient is without peripheral edema, but with mild pulmonary edema - will not diurese as intravascularly depleted, BiPAP for elevated CO2 as well as for increasing hydrostatic pressure - Continue with BB as hemodynamics allow - Hold ABNER with CAROLINA Respiratory - Hypercarbic respiratory failure, Current every day smoker - Currently VBG with hypercarbic respiratory acidosis- likley secondary to mild encephalopathy from HHS - Will add DIETER - CPAP/BiPAP as tolerated GI - No acute needs RENAL/LYTES - Hyperkalemia, Elevated Lactate, CAROLINA, hyponatremia - Currently with normal HCO3 and PH - Hyponatremia is multifactorial with primary factor of elevated glucose- expect to rise as tonicity changes - CAROILNA with hyperkalemia- Continue with volume resuscitation - BMP every 4 hours- if potassium does not downtrend with insulin and IV hydration - He is making urine and acid base status is acceptable - Has received calcium - Elevated lactate - likely in setting of hyperglycemia and hypovolemia- trend with volume and insulin infusion - may be metformin associated although he states hasn't taken it, but other history reviewed states few weeks ago he was diagnosed- hold metformin either way - Urinary frequency with retention - Appears to be new problem for patient, will further evaluate following acute resuscitation and voiding trial as patient progresses ENDO - HHS, DMII - Glucose 650, PH normal, HCO3 normal, hyponatremia - as above, fluids, insulin per protocol- goal to not drop BG >150mg/dl - Add dextrose to IVF once glucose is ~250 - Follow acid base, lactate, and potassium HEME - No acute needs ID - No evidence of acute infective process at this time - UA negative for LE, NI and/or bacteria - afebrile - lungs clear on exam LINES/IV ACCESS - Continue use of these lines DVT PROPHYLAXIS - SCDS, Lovenox 40mg qday- follow renal function DISPO: ICU while until potassium corrected and volume status acceptable I have personally spent 45 minutes of critical care time in the direct management of this patient. This is a life/limb threatening event. This includes time spent evaluating patient, direct bedside care, chart review, placing orders, interpretation of diagnostic studies, discussion with consultants, patient, and family members, as well as other required patient management activities. This time is exclusive of all separately billable procedures, and teaching time and separate from and in addition to any other critical care service time. Thank you for allowing us to participate in the care of this patient. Please refer to my attending physician's documentation for any further recommendations. History of Present Illness Reason for Consultation: HHNS, insulin infusion with hyperkalemia Requesting Physician: Dr. Li Attending Physician: Dr. Li History of Present Illness 52 YOM prisoner, appears to have been recently diagnosed with DMII and medical history of HTN, HLD, HF unspecified. Comes to the EMD today for complaints of increased urination and increase in generalized weakness. Patient reports that he was diagnosed yesterday with diabetes and reports that he has not taken any metformin. He also endorses that he has been having trouble urinating and this is new for him. He feels that he has to urinate like every 5 min, but just couldn't go. He was found in the EMD to have BG in the 600s, hyponatremia, hyperosmolar and with normal bicarb and CAROLINA. He was given 2liters of crystalloid and insulin infusion was initiated. Patient was also noted to be hyperkalemic 6.5-6.7. Medina was placed. Overall patient which appears to be HHNS with CAROLINA and hyperkalemia. Will bring patient to ICU and start aggressive volume resuscitation, check lactate levels and VBG. Standard therapy should assist with lowering of his potassium. Will need to evaluate if he is making urine as well. If his electrolyte profile does not respond to above, may need transfer for emergent management of hyperkalemia. CODE: FULL Allergies Allergy/AdvReac Type Severity Reaction Status Date / Time No Known Allergies Allergy Verified 01/10/23 16:06 Home Medications Medication Instructions Recorded Confirmed Type atorvastatin 10 mg tablet (Lipitor) 10 mg PO HS 01/10/23 01/10/23 History carvedilol 3.125 mg tablet 3.125 mg PO BID 01/10/23 01/10/23 History lisinopril 20 mg tablet 20 mg PO DAILY 01/10/23 01/10/23 History metformin 500 mg tablet 500 mg PO BID 01/10/23 01/10/23 History Patient History Medical History HLD (hyperlipidemia) HTN (hypertension) Family History Mother Coronary heart disease Diabetes Other Kidney disease Social History Smoking Status: Current every day smoker Tobacco Type: E-cigarettes / Vaping Cigarettes Per Day: 1 e-cigarette per day; Hx Alcohol Use: No Hx Substance Use: Yes Last Used Substance: Unknown Preferred Language: Hong Konger Communication Ability: Effective 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 Required: No Beliefs That Will Affect Care: None Current Living Situation: Other Current Living Situation Comment: correctional facility Assistive Devices: Glasses Review of Systems Review of Systems: REVIEW OF SYSTEMS: Constitutional: No fever, sweats or chills Eyes: (+) blurred vision without worsening, No diplopia, ENT: normal hearing, no trouble swallowing Respiratory: No cough, sputum, dyspnea at rest or on exertion Cardiovascular: No chest pain, tightness or palpitations Abdomen: (+) frequent urination and difficulty pain, nausea, vomiting, diarrhea or constipation Musculoskeletal: No joint pain, calf pain, swelling Neurologic: No weakness, numbness/tingling, or balance problems Psychiatric: No anxiety or depression Skin: No rash or itch Physical Exam Physical Exam: PHYSICAL EXAM: General: sleepy but easily arousable and remains awake for the entire examination and history but drifts back to sleep after, no apparent distress Head: Normocephalic, atraumatic ENT: PERRLA, EOMI, no pharyngeal exudate, mucous membranes dry Neuro: AAO x 3, speech clear and appropriate, strength intact bilaterally 5/5, sensation intact and equal all extremities and dermatomes, no pronator drift Chest: equal rise and fall of the chest, no accessory muscle use, no heaves or thrills, Clear to auscultation, on room air, Cardiac: Regular rate and rhythm, telemetry reviewed, skin warm dry, cap refill <3 seconds, peripheral pulses +2 no JVD, no murmur, no edema GI: NABS x 4 quadrants, soft, nontender to palpation, no rebound, guarding or tenderness : Medina to gravity, draining dilute yellow urine Extremities: Normal inspection, no peripheral edema or erythema, calfs nontender to palpation Psych: Normal mood and affect Skin: no rash or erythema, skin turgor with tenting Results & Data Results & Data Vital Signs (Past 12 Hours) Vital Signs Temp Pulse Pulse Resp BP BP Pulse Ox 01/10/23 18:15 77 16 96 01/10/23 18:15 118/84 01/10/23 18:01 70 20 96 01/10/23 18:01 125/73 01/10/23 18:00 75 17 96 01/10/23 17:45 68 17 97 01/10/23 17:45 131/93 01/10/23 17:30 76 17 97 01/10/23 17:30 135/82 01/10/23 17:15 75 17 97 01/10/23 17:15 135/72 01/10/23 17:00 133/85 01/10/23 17:17 76 01/10/23 17:00 79 18 100 01/10/23 16:45 71 16 99 01/10/23 16:45 131/89 01/10/23 16:30 80 18 01/10/23 16:30 125/79 01/10/23 16:15 74 19 92 01/10/23 16:15 102/82 01/10/23 16:05 78 19 01/10/23 16:05 114/47 L 01/10/23 16:04 67 20 01/10/23 15:45 83 23 97 01/10/23 15:37 147/81 H 01/10/23 15:37 87 18 01/10/23 15:30 84 21 01/10/23 15:15 90 18 01/10/23 15:01 87 19 01/10/23 15:01 173/92 H 01/10/23 14:29 74 22 01/10/23 14:26 78 18 161/86 H 01/10/23 13:41 36.7 C 83 16 183/102 H 98 O2 Del Method O2 Flow Rate 01/10/23 18:15 01/10/23 18:15 01/10/23 18:01 01/10/23 18:01 01/10/23 18:00 01/10/23 17:45 01/10/23 17:45 01/10/23 17:30 01/10/23 17:30 01/10/23 17:15 01/10/23 17:15 01/10/23 17:00 01/10/23 17:17 01/10/23 17:00 2 01/10/23 16:45 2 01/10/23 16:45 01/10/23 16:30 01/10/23 16:30 01/10/23 16:15 01/10/23 16:15 01/10/23 16:05 01/10/23 16:05 01/10/23 16:04 01/10/23 15:45 01/10/23 15:37 01/10/23 15:37 01/10/23 15:30 01/10/23 15:15 01/10/23 15:01 01/10/23 15:01 01/10/23 14:29 01/10/23 14:26 01/10/23 13:41 Room Air Laboratory Results Abnormal lab results 01/10/23 01/10/23 01/10/23 Range/Units 13:41 13:47 13:47 RDW Std Deviation 33.8 L (36.4-46.3) fL RDW Coeff of Martina 11.3 L (11.5-14.5) % MPV 13.0 H (9.4-12.4) fL Lymph # (Auto) 1.12 L (1.20-3.40) K/uL Sodium 116 L* (136-145) mmol/L Potassium 6.5 H* (3.5-5.1) mmol/L Chloride 82 L (98-107) mmol/L Anion Gap 12 H (3-11) BUN 46 H (6-23) mg/dl Creatinine 1.59 H (0.6-1.4) mg/dl BUN/Creatinine Ratio 28.9 H (10-20) Glucose 954 H* (70-99(Fasting)) mg/dl POC Glucose > 600 H* (70-99) mg/dl Osmolality (280-300) mOsm/kg Lipase 88 H (11-82) U/L Urine Glucose (UA) (Negative) Urine Ketones (Negative) Urine Blood (Negative) Urine RBC (Auto) (0-4) /hpf 01/10/23 01/10/23 01/10/23 Range/Units 13:47 14:07 15:35 RDW Std Deviation (36.4-46.3) fL RDW Coeff of Martina (11.5-14.5) % MPV (9.4-12.4) fL Lymph # (Auto) (1.20-3.40) K/uL Sodium (136-145) mmol/L Potassium (3.5-5.1) mmol/L Chloride (98-107) mmol/L Anion Gap (3-11) BUN (6-23) mg/dl Creatinine (0.6-1.4) mg/dl BUN/Creatinine Ratio (10-20) Glucose (70-99(Fasting)) mg/dl POC Glucose > 600 H* (70-99) mg/dl Osmolality 317 H (280-300) mOsm/kg Lipase (11-82) U/L Urine Glucose (UA) 3+ H (Negative) Urine Ketones Trace H (Negative) Urine Blood 2+ H (Negative) Urine RBC (Auto) 5-10 H (0-4) /hpf 01/10/23 01/10/23 01/10/23 Range/Units 16:25 17:01 18:06 RDW Std Deviation (36.4-46.3) fL RDW Coeff of Martina (11.5-14.5) % MPV (9.4-12.4) fL Lymph # (Auto) (1.20-3.40) K/uL Sodium 125 L D (136-145) mmol/L Potassium 6.7 H* (3.5-5.1) mmol/L Chloride 88 L (98-107) mmol/L Anion Gap (3-11) BUN 45 H (6-23) mg/dl Creatinine 1.66 H (0.6-1.4) mg/dl BUN/Creatinine Ratio 27.1 H (10-20) Glucose 655 H* (70-99(Fasting)) mg/dl POC Glucose > 600 H* 557 H* (70-99) mg/dl Osmolality (280-300) mOsm/kg Lipase (11-82) U/L Urine Glucose (UA) (Negative) Urine Ketones (Negative) Urine Blood (Negative) Urine RBC (Auto) (0-4) /hpf Diagnostic Findings Chest X-Ray 01/10/23 16:29 SINGLE VIEW CHEST CLINICAL HISTORY: Hypoxia. FINDINGS: An AP, portable, upright chest radiograph is obtained. No prior studies are available for comparison at the time of dictation. The heart appears mildly enlarged. There is prominence of the pulmonary vasculature. No airspace consolidation or large pleural effusion is identified. No pneumothorax is seen. The bony thorax is grossly intact. IMPRESSION: 1. The heart appears mildly enlarged and there is prominence of the pulmonary vasculature. Correlate clinically for evidence of fluid overload/congestive change. 2. No airspace consolidation or large pleural effusion is identified. ACT 112: Negative or not required by law. Electronically signed by: Cyrus Melo M.D. 01/10/2023 4:50 PM Medications Administered Home Medications atorvastatin 10 mg tablet (Lipitor) 10 mg PO HS 01/10/23 [History Confirmed 01/10/23] carvedilol 3.125 mg tablet 3.125 mg PO BID 01/10/23 [History Confirmed 01/10/23] lisinopril 20 mg tablet 20 mg PO DAILY 01/10/23 [History Confirmed 01/10/23] metformin 500 mg tablet 500 mg PO BID 01/10/23 [History Confirmed 01/10/23] Active Medications Acetaminophen (Acetaminophen 325 Mg Tab) 650 mg PO Q4H PRN PRN Reason: Pain or Fever Stop: 02/09/23 18:51 Al Hydrox/Mg Hydrox/Simethicone (Aluminum/Magnesium Susp 30 Ml Udc) 15 ml PO Q4H PRN PRN Reason: Dyspepsia Stop: 02/09/23 18:51 Atorvastatin Calcium (Atorvastatin 10 Mg Tab) 10 mg PO HS NUNU Stop: 02/10/23 20:59 Carvedilol (Carvedilol 3.125 Mg Tab) 3.125 mg PO BID NUNU Stop: 02/09/23 20:59 Dextrose (Dextrose 50% 50 Ml Syringe) 25 - 50 ml IV UD PRN; Protocol PRN Reason: Hypoglycemia Protocol Stop: 02/09/23 15:44 Enoxaparin Sodium (Enoxaparin Inj 40 Mg/0.4 Ml Syr) 40 mg SQ HS NUNU Stop: 02/09/23 20:59 Glucagon (Glucagon For Inj 1 Mg Vial) 1 mg IM UD PRN; Protocol PRN Reason: Hypoglycemia Protocol Stop: 02/09/23 15:44 Glucose (Glucose 40% Gel 15 Gm Tube) 15 - 30 gm PO UD PRN; Protocol PRN Reason: Hypoglycemia Protocol Stop: 02/09/23 15:44 Glucose (Glucose 10 Tab/Tube) 4 - 8 tab PO UD PRN; Protocol PRN Reason: Hypoglycemia Protocol Stop: 02/09/23 15:44 Insulin Human Regular 250 (units/ Sodium Chloride) 250 mls @ 5.2 mls/hr IV .Q24H NUNU; Protocol Stop: 02/09/23 15:44 Last Titration: 01/10/23 18:11 Dose: 5.2 units/hr, 5.2 mls/hr Sodium Chloride (Nss) 1,000 mls @ 125 mls/hr IV .Q8H NUNU Stop: 02/09/23 17:29 Sodium Chloride (Nss) 1,000 mls @ 999 mls/hr IV .Q1H1M ONE Stop: 01/10/23 19:34 Insulin Aspart (Insulin Aspart Per Unit Charge) 0 units SC ACHS NUNU Stop: 02/09/23 16:29 Magnesium Hydroxide (Magnesium Hydroxide Susp 30 Ml Udc) 30 ml PO Q12H PRN PRN Reason: Constipation Stop: 02/09/23 18:51 Miscellaneous (Carbohydrates For Hypoglycemia ) 15 - 30 gm PO UD PRN PRN Reason: Hypoglycemia Treatment Stop: 02/09/23 15:44 Miscellaneous (Pending 1/2nss+20meq Kcl Ivf) 1 each N/A Q2H NUNU Stop: 02/09/23 18:51 Miscellaneous (Pending D5 1/2ns+20meq Kcl Ivf) 1 each N/A Q2H NUNU Stop: 02/09/23 18:51 Miscellaneous (Hhs Goal Range 250-350 Mg/Dl) 1 each N/A ONE ONE Stop: 01/10/23 18:53 Miscellaneous (Icu Protocol For Hyperglycemia) 1 each N/A ACHS NUNU Stop: 01/12/23 20:59 Miscellaneous Information (Pharmacy Glycemic Mgmt Consult) 1 each N/A UD PRN PRN Reason: Consult Stop: 02/09/23 18:51 Ondansetron HCl (Ondansetron Inj 2 Mg/Ml 2 Ml Vial) 4 mg IV Q6H PRN PRN Reason: Nausea Stop: 02/09/23 18:51 Polyethylene Glycol (Polyethylene (Miralax) 17 Gm Pack) 17 gm PO DAILY PRN PRN Reason: Constipation Stop: 02/09/23 18:51 ECG Additional Comments: Normal sinus rhythm Left axis deviation Low voltage QRS Inferior infarct , age undetermined Cannot rule out Anterior infarct , age undetermined Abnormal ECG When compared with ECG of 10-JAN-2023 13:43, (unconfirmed) T wave inversion now evident in Inferior leads Coding Level of Care Code 07540 CRITICAL CARE 1ST 30-74M Diagnoses Hyperosmolar hyperglycemic state (HHS) E11.00 Acute hyperkalemia E87.5 CAROLINA (acute kidney injury) N17.9 HTN (hypertension) I10 HLD (hyperlipidemia) E78.5
[2023-01-10] MEDS ORDERED: PENDING 1/2NSS+20mEq KCL IVF SCH (18:52)
[2023-01-10] MEDS ORDERED: POLYETHYLENE (MIRALAX) 17 GM PACK PO PRN (18:52)
[2023-01-10] MEDS ORDERED: HHS GOAL RANGE 250-350 mg/dl ONE (18:52)
[2023-01-10] MEDS ORDERED: ONDANSETRON INJ 2 MG/ML 2 ML VIAL IV PRN (18:52)
[2023-01-10] MEDS ORDERED: PENDING D5 1/2NS+20mEq KCL IVF SCH (18:52)
[2023-01-10] MEDS ORDERED: MAGNESIUM HYDROXIDE SUSP 30 ML UDC PO PRN (18:52)
[2023-01-10] MEDS ORDERED: ACETAMINOPHEN 325 MG TAB PO PRN (18:52)
[2023-01-10] MEDS ORDERED: ALUMINUM/MAGNESIUM SUSP 30 ML UDC PO PRN (18:52)
[2023-01-10] MEDS ORDERED: PHARMACY GLYCEMIC MGMT CONSULT PRN (18:52)
[2023-01-10] MEDS: INSULIN ASPART PER UNIT CHARGE SC SCH ×2 (19:38→19:59)
[2023-01-10] MEDS: carvediloL 3.125 MG TAB PO SCH (19:39)
[2023-01-10] MEDS: ENOXAPARIN INJ 40 MG/0.4 ML SYR SQ SCH (19:40)
[2023-01-10 19:43] LABS: Base Excess VBG 2.8 mEq/L; HCO3 VBG 31 mmol/L; Oxygen Saturation VBG < 60.0 %; PCO2 VBG 65 mmHg (38-50); PO2 VBG 30 mmHg; pH VBG 7.29 (7.36-7.41)
[2023-01-10] MEDS ORDERED: ALBUTEROL 0.083% NEBU SOLN 3 ML VIAL NEB PRN (19:57)
[2023-01-10 20:02] LABS: Calcium 9.7 mg/dl (8.6-10.3); Potassium 5.6 mmol/L (3.5-5.1)
[2023-01-10 20:11] LABS: Creatinine Clr Calc Pharmacy 64.3 ml/min; Est GFR (African American) 65.3 ml/min; Est GFR (Non-African American) 56.3 ml/min
[2023-01-10] MEDS ORDERED: ICU Protocol for HYPERglycemia SCH (21:00)
[2023-01-10] MEDS ORDERED: D5W AND 1/2NSS 1,000 ML IV SCH (22:30)
[2023-01-10 22:46] LABS: Base Excess VBG 4.2 mEq/L; HCO3 VBG 31 mmol/L; Oxygen Saturation VBG 72.7 %; PCO2 VBG 55 mmHg (38-50); PO2 VBG 47 mmHg; pH VBG 7.36 (7.36-7.41)
[2023-01-10 23:10] LABS: Creatinine Clr Calc Pharmacy 77.9 ml/min; Est GFR (African American) 82.3 ml/min; Potassium 4.6 mmol/L (3.5-5.1)
[2023-01-10] MEDS ORDERED: Nursing to Pharmacy Communication SCH (23:30)
[2023-01-10] MEDS: D5W AND 1/2NSS + 20MEQ KCL 20 MEQ/1,000 ML BAG IV SCH (23:40)
[2023-01-11 02:27] LABS: Base Excess VBG 3.9 mEq/L; HCO3 VBG 30 mmol/L; Oxygen Saturation VBG 75.8 %; PCO2 VBG 51 mmHg (38-50); PO2 VBG 47 mmHg; pH VBG 7.38 (7.36-7.41)
[2023-01-11 02:31] LABS: Basophils # (auto) 0.01 K/uL (0.00-0.20); Basophils % (auto) 0.1 %; Eosinophils # (auto) 0.03 K/uL (0.00-0.50); Eosinophils % (auto) 0.3 %; Hematocrit (blood only) 38.2 % (42.0-52.0); Hemoglobin 13.5 g/dl (14.0-18.0); Immature Granulocytes # (auto) 0.03 K/uL (0.01-0.20); Immature Granulocytes % (auto) 0.3 %; Lymphocytes # (auto) 2.28 K/uL (1.20-3.40); Lymphocytes % (auto) 25.4 %; Mean Corpuscular Hemoglobin 29.5 pg (25.0-34.0); Mean Corpuscular Hgb Conc 35.3 g/dL (32.0-36.0); Mean Corpuscular Volume 83.4 fL (80.0-100.0); Mean Platelet Volume 12.5 fL (9.4-12.4); Monocytes # (auto) 0.71 K/uL (0.11-0.59); Monocytes % (auto) 7.9 %; Neutrophils # (auto) 5.93 K/uL (1.40-6.50); Platelet Count 163 K/uL (130-400); RDW Coefficient of Variation 11.7 % (11.5-14.5); RDW Standard Deviation 35.2 fL (36.4-46.3); Red Blood Count 4.58 M/uL (4.70-6.10); White Blood Count 8.99 K/ul (4.8-10.8)
[2023-01-11 02:57] LABS: Albumin Globulin Ratio 1.3 (0.9-2); Albumin Level 3.4 gm/dl (3.4-5.0); BUN Creatinine Ratio 26.4 (10-20); Bilirubin,Total 0.6 mg/dl (0.2-1.0); Calcium 8.6 mg/dl (8.6-10.3); Creatinine Clr Calc Pharmacy 86.7 ml/min; Est GFR (African American) 93.7 ml/min; Est GFR (Non-African American) 80.9 ml/min; Globulin 2.7 gm/dl (2.5-4.0); Magnesium 2.1 mg/dl (1.7-2.4); Phosphorus 4.2 mg/dl (2.5-4.9); Potassium 4.3 mmol/L (3.5-5.1); Total Protein 6.1 gm/dl (6.0-8.3)
[2023-01-11 06:21] LABS: HCO3 VBG 31 mmol/L; Oxygen Saturation VBG 83.4 %; PCO2 VBG 50 mmHg (38-50); PO2 VBG 52 mmHg
[2023-01-11] MEDS: D5W AND 1/2NSS + 20MEQ KCL 20 MEQ/1,000 ML BAG IV SCH (06:35)
[2023-01-11 06:52] LABS: BUN Creatinine Ratio 23.3 (10-20); Calcium 8.5 mg/dl (8.6-10.3); Creatinine Clr Calc Pharmacy 89.4 ml/min; Est GFR (Non-African American) 83.7 ml/min; Potassium 4.5 mmol/L (3.5-5.1)
--- NOTE | 2023-01-11 07:18 | Critical Care Progress Note ---
Date of Service January 11, 2023 Assessment & Plan (1) Hyperosmolar hyperglycemic state (HHS): (2) Acute hyperkalemia: (3) CAROLINA (acute kidney injury): (4) HTN (hypertension): (5) HLD (hyperlipidemia): Plan Reason Critically Ill: 52 YOM admitted to ICU for hyperkalemia and CAROLINA in the setting of HHS, currently receiving insulin therapy and volume replacment. Neuro - No acute needs CAM ICU: NEGATIVE - Continue with neurological examinations with volume replacement Cardiac - Hx of HTN, HF unspecified, HLD - Continue with BB as hemodynamics allow -Reinstitute ABNER tomorrow morning Respiratory - Hypercarbic respiratory failure, Current every day smoker - Currently VBG with hypercarbic respiratory acidosis- likley secondary to mild encephalopathy from HHS - Will add DIETER - CPAP/BiPAP as tolerated -Patient is at risk for obesity related hypoventilation syndrome, obstructive sleep apnea, as well as chronic hypercapnia secondary to COPD -Would recheck VBG and bicarb after patient is further stabilized from this acute decompensation however while still in the hospital to elucidate level of chronic hypercapnia GI - No acute needs RENAL/LYTES - Hyperkalemia, Elevated Lactate, CAROLINA, hyponatremia: Resolved - Urinary frequency with retention -Discontinue Medina: Monitor for acute retention ENDO - HHS, DMII: Significantly improved -Just goal glucose to 110-180, start Lantus and allow diet HEME - No acute needs ID - No evidence of acute infective process at this time - UA negative for LE, NI and/or bacteria - afebrile - lungs clear on exam LINES/IV ACCESS - Continue use of these lines DVT PROPHYLAXIS - SCDS, Lovenox 40mg qday DISPO: Metabolic derangements have improved stable for downgrade out of ICU Admission and Anticipated Discharge Date Admission Date: January 10, 2023 Subjective Patient reports compliance with medications, has been previously diagnosed with borderline diabetic. Has not had similar events happened in the past. Feels improved compared to yesterday Physical Exam Physical Exam: General: Alert. nontoxic. Skin: Warm, dry, Head: Atraumatic Ears, nose, mouth and throat: airway patent Cardiovascular: Normal peripheral perfusion Respiratory: no respiratory distress Gastrointestinal: Non distended Musculoskeletal: No deformity, right wrist and left ankle shackled to bed Results & Data Results & Data Vital Signs (Past 12 Hours) Vital Signs Temp Pulse Resp BP Pulse Ox O2 Del Method O2 Flow Rate 01/11/23 06:00 69 16 99 01/11/23 06:00 126/78 01/11/23 05:00 72 20 98 01/11/23 04:00 71 19 98 01/11/23 04:00 36.7 C 01/11/23 03:00 72 18 98 01/11/23 03:00 97/66 L 01/11/23 02:00 75 13 97 01/11/23 02:00 102/65 01/11/23 01:00 70 14 95 01/11/23 01:00 108/64 01/11/23 03:07 74 14 97 3 01/11/23 00:00 66 14 97 01/11/23 00:00 112/67 01/10/23 23:00 75 17 100 01/10/23 23:00 116/68 01/10/23 22:00 74 11 L 97 01/10/23 22:00 109/65 01/10/23 21:00 93 H 25 H 97 01/10/23 21:00 121/72 01/11/23 00:00 36.7 C 01/11/23 00:00 76 01/10/23 22:30 77 12 97 3 01/10/23 20:36 76 12 98 3 01/10/23 20:00 136/68 01/10/23 20:00 72 20 100 01/10/23 20:41 BiPAP 01/10/23 20:00 36.8 C FiO2 01/11/23 06:00 01/11/23 06:00 01/11/23 05:00 01/11/23 04:00 01/11/23 04:00 01/11/23 03:00 01/11/23 03:00 01/11/23 02:00 01/11/23 02:00 01/11/23 01:00 01/11/23 01:00 01/11/23 03:07 01/11/23 00:00 01/11/23 00:00 01/10/23 23:00 01/10/23 23:00 01/10/23 22:00 01/10/23 22:00 01/10/23 21:00 01/10/23 21:00 01/11/23 00:00 01/11/23 00:00 01/10/23 22:30 01/10/23 20:36 01/10/23 20:00 01/10/23 20:00 01/10/23 20:41 40 01/10/23 20:00 Critical Care Results & Data Vital Signs (Past 12 Hours) Vital Signs Temp Pulse Resp BP Pulse Ox O2 Del Method O2 Flow Rate 01/11/23 06:00 69 16 99 01/11/23 06:00 126/78 01/11/23 05:00 72 20 98 01/11/23 04:00 71 19 98 01/11/23 04:00 36.7 C 01/11/23 03:00 72 18 98 01/11/23 03:00 97/66 L 01/11/23 02:00 75 13 97 01/11/23 02:00 102/65 01/11/23 01:00 70 14 95 01/11/23 01:00 108/64 01/11/23 03:07 74 14 97 3 01/11/23 00:00 66 14 97 01/11/23 00:00 112/67 01/10/23 23:00 75 17 100 01/10/23 23:00 116/68 01/10/23 22:00 74 11 L 97 01/10/23 22:00 109/65 01/10/23 21:00 93 H 25 H 97 01/10/23 21:00 121/72 01/11/23 00:00 36.7 C 01/11/23 00:00 76 01/10/23 22:30 77 12 97 3 01/10/23 20:36 76 12 98 3 01/10/23 20:00 136/68 01/10/23 20:00 72 20 100 01/10/23 20:41 BiPAP 01/10/23 20:00 36.8 C FiO2 01/11/23 06:00 01/11/23 06:00 01/11/23 05:00 01/11/23 04:00 01/11/23 04:00 01/11/23 03:00 01/11/23 03:00 01/11/23 02:00 01/11/23 02:00 01/11/23 01:00 01/11/23 01:00 01/11/23 03:07 01/11/23 00:00 01/11/23 00:00 01/10/23 23:00 01/10/23 23:00 01/10/23 22:00 01/10/23 22:00 01/10/23 21:00 01/10/23 21:00 01/11/23 00:00 01/11/23 00:00 01/10/23 22:30 01/10/23 20:36 01/10/23 20:00 01/10/23 20:00 01/10/23 20:41 40 01/10/23 20:00 Lab & Micro Results (Past 24 Hours) RBC 4.58 M/uL (4.70-6.10) L 01/11/23 WBC 8.99 K/ul (4.8-10.8) 01/11/23 Hgb 13.5 g/dl (14.0-18.0) L 01/11/23 Hct 38.2 % (42.0-52.0) L 01/11/23 MCV 83.4 fL (80.0-100.0) 01/11/23 MCH 29.5 pg (25.0-34.0) 01/11/23 MCHC 35.3 g/dL (32.0-36.0) 01/11/23 RDW Standard Deviation 35.2 fL (36.4-46.3) L 01/11/23 RDW Coefficient of Variation 11.7 % (11.5-14.5) 01/11/23 Plt Count 163 K/uL (130-400) 01/11/23 MPV 12.5 fL (9.4-12.4) H 01/11/23 Neutrophils (%) (Auto) 66.0 % 01/11/23 Lymphocytes (%) (Auto) 25.4 % 01/11/23 Monocytes # (Auto) 0.71 K/uL (0.11-0.59) H 01/11/23 Eosinophils # (Auto) 0.03 K/uL (0.00-0.50) 01/11/23 Immature Granulocyte % (Auto) 0.3 % 01/11/23 Neutrophils # (Auto) 5.93 K/uL (1.40-6.50) 01/11/23 Lymphocytes # (Auto) 2.28 K/uL (1.20-3.40) 01/11/23 Monocytes # (Auto) 0.71 K/uL (0.11-0.59) H 01/11/23 Eosinophils # (Auto) 0.03 K/uL (0.00-0.50) 01/11/23 Basophils # (Auto) 0.01 K/uL (0.00-0.20) 01/11/23 Immature Granulocyte # (Auto) 0.03 K/uL (0.01-0.20) 3 Na 135 mmol/L (136-145) L 01/11/23 K 4.5 mmol/L (3.5-5.1) 01/11/23 Cl 102 mmol/L (98-107) 01/11/23 CO2 28 mmol/L (21-32) 01/11/23 Anion Gap 5 (3-11) 01/11/23 BUN 24 mg/dl (6-23) H 01/11/23 Creatinine 1.03 mg/dl (0.6-1.4) 01/11/23 Estimated GFR ( Amer) 97.0 ml/min 01/11/23 Estimated GFR (Non-Af Amer) 83.7 ml/min 01/11/23 BUN/Creatinine Ratio 23.3 (10-20) H 01/11/23 Glu 335 mg/dl (70-99(Fasting)) H* 01/11/23 Ca 8.5 mg/dl (8.6-10.3) L 01/11/23 Phosphorus Level 4.2 mg/dl (2.5-4.9) 01/11/23 Total Bilirubin 0.6 mg/dl (0.2-1.0) 01/11/23 AST 19 U/L (13-39) 01/11/23 ALT 27 U/L (7-52) 01/11/23 Alkaline Phosphatase 40 U/L (34-104) 01/11/23 TP 6.1 gm/dl (6.0-8.3) 01/11/23 Albumin 3.4 gm/dl (3.4-5.0) 01/11/23 Globulin 2.7 gm/dl (2.5-4.0) 01/11/23 Albumin/Globulin Ratio 1.3 (0.9-2) 11/01/23 Mg 2.1 mg/dl (1.7-2.4) 01/11/23 02:15 Calcium Level 8.5 mg/dl (8.6-10.3) L 01/11/23 06:05 Venous Blood pH 7.40 (7.36-7.41) 01/11/23 06:10 Venous Blood Partial Pressure CO2 50 mmHg (38-50) 01/11/23 06:1 0 Venous Blood Partial Pressure O2 52 mmHg 01/11/23 06:10 Venous Blood HCO3 31 mmol/L 01/11/23 06:10 Venous Blood Base Excess 5.0 mEq/L 01/11/23 06:10 Venous Blood Oxygen Saturation 83.4 % 01/11/23 06:10 Diagnostic Findings (Past 24 Hours) Chest X-Ray 01/10/23 16:29 SINGLE VIEW CHEST CLINICAL HISTORY: Hypoxia. FINDINGS: An AP, portable, upright chest radiograph is obtained. No prior studies are available for comparison at the time of dictation. The heart appears mildly enlarged. There is prominence of the pulmonary vasculature. No airspace consolidation or large pleural effusion is identified. No pneumothorax is seen. The bony thorax is grossly intact. IMPRESSION: 1. The heart appears mildly enlarged and there is prominence of the pulmonary vasculature. Correlate clinically for evidence of fluid overload/congestive change. 2. No airspace consolidation or large pleural effusion is identified. ACT 112: Negative or not required by law. Electronically signed by: Cyrus Melo M.D. 01/10/2023 4:50 PM I & O Totals 24 Hours 01/10/23 01/11/23 01/12/23 06:59 06:59 06:59 Intake Total 5781.840 / 5781.840 Output Total 3450 / 3450 Balance 2331.840 / 2331.840 Cumulative 01/10/23 13:19 thru 01/11/23 06:55 Intake Total 5781.840 Output Total 3450 Balance 2331.840 RT Ventilator Mngmt (Last Documented) Ventilator Ordered Settings Respiratory Rate 16 01/11/23 06:00 Fraction of Inspired Oxygen 40 01/10/23 20:41 Ventilator - PT Measurements Respiratory Rate 16 Coding Level of Care Code 57038 SUB INP/OBS CARE 3/50MIN Diagnoses Hyperosmolar hyperglycemic state (HHS) E11.00 Acute hyperkalemia E87.5 CAROLINA (acute kidney injury) N17.9 HTN (hypertension) I10 HLD (hyperlipidemia) E78.5
[2023-01-11 07:29] LABS: Estimated Average Glucose 398 mg/dl; Hemoglobin A1C 15.5 % (4.5-5.6)
[2023-01-11 07:45] LABS: Estimated Average Glucose 407 mg/dl; Hemoglobin A1C 15.8 % (4.5-5.6)
--- NOTE | 2023-01-11 07:47 | XRay Report ---
XR chest 1V portable CLINICAL HISTORY: eval for congestive change COMPARISON STUDY: Chest radiograph January 10, 2023. FINDINGS: Lung volumes are normal. Lungs are clear. There is no pneumothorax or pleural effusion. The re is mild cardiomegaly. Mediastinal contours are normal. There is no evidence for pulmonary edema. IMPRESSION: 1. No acute cardiopulmonary findings. 2. Mild cardiomegaly. No evidence for pulmonary edema. ACT 112: Negative or not required by law. Electronically signed by: James Layne M.D. 01/11/2023 7:46 AM
[2023-01-11] MEDS: INSULIN ASPART PER UNIT CHARGE SC SCH ×4 (08:46→22:26)
--- NOTE | 2023-01-11 08:48 | Electrocardiogram Report ---
Test Reason : Blood Pressure : / mmHG Vent. Rate : 075 BPM Atrial Rate : 075 BPM P-R Int : 198 ms QRS Dur : 110 ms QT Int : 372 ms P-R-T Axes : 045 -41 069 degrees QTc Int : 415 ms Normal sinus rhythm Left axis deviation Minimal voltage criteria for LVH, may be normal variant Abnormal ECG No previous ECGs available Confirmed by Mike Muniz ([id number]) on 01/11/2023 8:47:53 AM Referred By: [facility] Confirmed By:Jose Muniz
[2023-01-11] MEDS: carvediloL 3.125 MG TAB PO SCH ×2 (08:51→17:39)
--- NOTE | 2023-01-11 08:56 | Electrocardiogram Report ---
Test Reason : Blood Pressure : / mmHG Vent. Rate : 067 BPM Atrial Rate : 067 BPM P-R Int : 192 ms QRS Dur : 094 ms QT Int : 420 ms P-R-T Axes : 002 -43 -44 degrees QTc Int : 443 ms Normal sinus rhythm Left axis deviation Low voltage QRS Inferior infarct , age undetermined Poor R wave progression, consider anterior NV vs. lead placement vs. LVH Abnormal ECG When compared with ECG of 10-JAN-2023 13:43, (unconfirmed) T wave inversion now evident in Inferior leads Confirmed by Mike Muniz ([id number]) on 01/11/2023 8:56:13 AM Referred By: [facility] Confirmed By:Jose Muniz
--- NOTE | 2023-01-11 11:43 | Hospitalist Progress Note ---
Date of Service January 11, 2023 Assessment & Plan (1) Hyperosmolar hyperglycemic state (HHS): (2) Pseudohyponatremia: (3) Acute hyperkalemia: (4) [place] (acute kidney injury): (5) Dehydration: (6) HTN (hypertension): (7) HLD (hyperlipidemia): (8) Hyperglycemia due to type 2 diabetes mellitus: (9) Smoker: Plan 52 yr old M who has a significant PMH of HTN and HLD presents to ED 2/2 frequent urinating, difficulty urinating and incontinence over last 3 days. He is incarcerated at [facility] residential. He states he was diagnosed with type 2 diabetes 3 weeks ago. HHS T2DM -newly dx 3 weeks ago admit to ICU 2/2 HHS and electrolyte derangements requiring freq lab monitoring continue Insulin gtt per protocol, glycemic pharmacist consulted HHS resolved and downgraded to PCU (01/11) admitting CXR ? congestive change, cardiomegaly this appears to have resolved on repeat CXR, euvolemic on exam Dysuria: repeat check for UTI now. Pyridium for comfort-advised him on side effects Acute Hyperkalemia K initially 6.5, repeat 4 hrs later 6.7 he did receive 1g calcium gluconate and 50meq amp of bicarb without much improvement pt received insulin bolus, gtt, resolved. Labs in am. [place] unknown baseline cr; elevated to 1.66 on admission 2/2 severe dehydration in setting of HHS. resolved after IVF resuscitation. Pseudohyponatremia initial ma 116, corrected 130 repeat corrected 135 continue to monitor-resolved. HTN on lisinopril/coreg as outpatient chronic, stable, cont current therapy HLD continue statin chronic, stable Smoker: encouraged to quit. Nicoderm patch provided. DVT ppx: Lovenox, FULL CODE Dispo: from [facility], to return once medically stable I spent a total [id number] coordinating, documenting, and providing care for this patient excluding time spent in the performance of separately billed services DO [facility] Hospitalist Admission and Anticipated Discharge Date Admission Date: January 10, 2023 Subjective 52 yo new onset diabetic presents with HHS Feels dysuria and incomplete voiding for the past 3 days prior to arrival. No evidence of UTI on initial UA Will repeat UA now Denies other symptoms Still on insulin drip at 2.5/hr and eating but glucose is improving and glycemic pharmacist have a good plan for transitioning off the drip overnight. he smokes e-cigarettes and will like a nicoderm patch Physical Exam Physical Exam: CONSTITUTIONAL: WNWD, vitals as above, generally well-appearing, NAD EYES: normal conjunctivae, no scleral icterus ENT: external ear and nose normal, oropharynx clear, poor dentition NECK: trachea midline RESPIRATORY: clear to auscultation bilaterally, no crackles, rales or wheezes, normal respiratory effort CARDIOVASCULAR: regular rate and rhythm, S1 and 2 heard without murmurs, gallops or rubs, no JVD, no peripheral edema CHEST: inspection of chest was normal GASTROINTESTINAL: soft, nontender, ND, no guarding MUSCULOSKELETAL: strength 5/5 throughout, head is normocephalic and atraumatic SKIN: warm and dry NEUROLOGIC: CN 2-12 grossly intact, no sensory deficit, normal cognition, normal speech, no tremor PSYCHIATRIC: alert cooperative and oriented to person, place and time. Euthymic mood, makes good eye contact, language grossly intact, recent and remote memory grossly intact. Results & Data Results & Data Vital Signs (Past 12 Hours) Vital Signs Temp Pulse Resp BP Pulse Ox O2 Flow Rate 01/11/23 08:00 74 01/11/23 08:00 36.8 C 01/11/23 06:00 69 16 99 01/11/23 06:00 126/78 01/11/23 05:00 72 20 98 01/11/23 04:00 71 19 98 01/11/23 04:00 36.7 C 01/11/23 03:00 72 18 98 01/11/23 03:00 97/66 L 01/11/23 02:00 75 13 97 01/11/23 02:00 102/65 01/11/23 01:00 70 14 95 01/11/23 01:00 108/64 01/11/23 03:07 74 14 97 3 01/11/23 00:00 66 14 97 01/11/23 00:00 112/67 01/11/23 00:00 36.7 C 01/11/23 00:00 76 Laboratory Results Short CBC 01/10/23 01/11/23 Range/Units 13:47 02:15 WBC 6.77 8.99 (4.8-10.8) K/ul Hgb 15.1 13.5 L (14.0-18.0) g/dl Hct 42.5 38.2 L (42.0-52.0) % Plt Count 212 163 (130-400) K/uL BMP 01/10/23 01/10/23 01/10/23 13:47 16:25 19:31 Sodium 116 L* 125 L D 131 L Potassium 6.5 H* 6.7 H* 5.6 H Chloride 82 L 88 L 93 L Carbon Dioxide 22 29 29 BUN 46 H 45 H 40 H Creatinine 1.59 H 1.66 H 1.43 H Glucose 954 H* 655 H* 496 H* Calcium 9.3 9.9 9.7 01/10/23 01/11/23 01/11/23 22:33 02:15 06:05 Sodium 135 L 134 L 135 L Potassium 4.6 4.3 4.5 Chloride 100 101 102 Carbon Dioxide 28 28 28 BUN 33 H 28 H 24 H Creatinine 1.18 1.06 1.03 Glucose 320 H* 329 H* 335 H* Calcium 9.0 8.6 8.5 L Liver Function 01/10/23 01/11/23 Range/Units 13:47 02:15 Total Bilirubin 0.9 0.6 (0.2-1.0) mg/dl AST 18 19 (13-39) U/L ALT 34 27 (7-52) U/L Alkaline Phosphatase 57 40 (34-104) U/L Albumin 4.2 3.4 (3.4-5.0) gm/dl Urine 01/10/23 Range/Units 14:07 Urine Color Yellow Urine Appearance Clear (Clear) Urine pH 5.5 (4.5-7.5) Ur Specific [place] 1.027 (1.000-1.030) Urine Protein Negative (Negative) Urine Glucose (UA) 3+ H (Negative) Diagnostic Findings Chest X-Ray 01/11/23 08:00 XR chest 1V portable CLINICAL HISTORY: eval for congestive change COMPARISON STUDY: Chest radiograph January 10, 2023. FINDINGS: Lung volumes are normal. Lungs are clear. There is no pneumothorax or pleural effusion. There is mild cardiomegaly. Mediastinal contours are normal. There is no evidence for pulmonary edema. IMPRESSION: 1. No acute cardiopulmonary findings. 2. Mild cardiomegaly. No evidence for pulmonary edema. ACT 112: Negative or not required by law. Electronically signed by: James Layne M.D. 01/11/2023 7:46 AM Medications Administered Current Inpatient Medications Acetaminophen (Acetaminophen 325 Mg Tab) 650 mg PO Q4H PRN PRN Reason: Pain or Fever Stop: 02/09/23 18:51 Al Hydrox/Mg Hydrox/Simethicone (Aluminum/Magnesium Susp 30 Ml Udc) 15 ml PO Q4H PRN PRN Reason: Dyspepsia Stop: 02/09/23 18:51 Albuterol (Albuterol 0.083% Nebu Soln 3 Ml Vial) 2.5 mg NEB Q6R PRN; Protocol PRN Reason: wheeze, coughing Stop: 02/09/23 19:56 Atorvastatin Calcium (Atorvastatin 10 Mg Tab) 10 mg PO HS NUNU Stop: 02/10/23 20:59 Carvedilol (Carvedilol 3.125 Mg Tab) 3.125 mg PO BIDM NUNU Stop: 02/09/23 20:59 Last Admin: 01/11/23 08:51 Dose: 3.125 mg Dextrose (Dextrose 50% 50 Ml Syringe) 25 - 50 ml IV UD PRN; Protocol PRN Reason: Hypoglycemia Protocol Stop: 02/09/23 15:44 Enoxaparin Sodium (Enoxaparin Inj 40 Mg/0.4 Ml Syr) 40 mg SQ HS NUNU Stop: 02/09/23 20:59 Last Admin: 01/10/23 19:40 Dose: 40 mg Glucagon (Glucagon For Inj 1 Mg Vial) 1 mg IM UD PRN; Protocol PRN Reason: Hypoglycemia Protocol Stop: 02/09/23 15:44 Glucose (Glucose 40% Gel 15 Gm Tube) 15 - 30 gm PO UD PRN; Protocol PRN Reason: Hypoglycemia Protocol Stop: 02/09/23 15:44 Glucose (Glucose 10 Tab/Tube) 4 - 8 tab PO UD PRN; Protocol PRN Reason: Hypoglycemia Protocol Stop: 02/09/23 15:44 Insulin Human Regular 250 (units/ Sodium Chloride) 250 mls @ 2.3 mls/hr IV .Q24H NUNU; Protocol Stop: 02/09/23 15:44 Last Titration: 01/11/23 10:39 Dose: 2.3 units/hr, 2.3 mls/hr Insulin Aspart (Insulin Aspart Per Unit Charge) 0 units SC ACHS [facility] Stop: 02/09/23 16:29 Last Admin: 01/11/23 08:46 Dose: Not Given Lisinopril (Lisinopril 20 Mg Tab) 20 mg PO QAM [facility] Stop: 02/11/23 08:59 Magnesium Hydroxide (Magnesium Hydroxide Susp 30 Ml Udc) 30 ml PO Q12H PRN PRN Reason: Constipation Stop: 02/09/23 18:51 Miscellaneous (Carbohydrates For Hypoglycemia ) 15 - 30 gm PO UD PRN PRN Reason: Hypoglycemia Treatment Stop: 02/09/23 15:44 Miscellaneous Information (Pharmacy Glycemic Mgmt Consult) 1 each N/A UD PRN PRN Reason: Consult Stop: 02/09/23 18:51 Ondansetron HCl (Ondansetron Inj 2 Mg/Ml 2 Ml Vial) 4 mg IV Q6H PRN PRN Reason: Nausea Stop: 02/09/23 18:51 Polyethylene Glycol (Polyethylene (Miralax) 17 Gm Pack) 17 gm PO DAILY PRN PRN Reason: Constipation Stop: 02/09/23 18:51 (8) Hyperglycemia due to type 2 diabetes mellitus Diabetes mellitus ad terminal makeup operator insulin use: with ad terminal makeup operator use Qualified Code(s): E11.65 - Type 2 diabetes mellitus with hyperglycemia; 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
[2023-01-11] MEDS ORDERED: LANTUS PER UNIT CHARGE SC STA (11:54)
--- NOTE | 2023-01-11 12:05 | Electrocardiogram Report ---
Test Reason : Blood Pressure : / mmHG Vent. Rate : 069 BPM Atrial Rate : 069 BPM P-R Int : 172 ms QRS Dur : 088 ms QT Int : 430 ms P-R-T Axes : -05 -28 266 degrees QTc Int : 460 ms Normal sinus rhythm Low voltage QRS T wave abnormality, consider anterolateral ischemia Abnormal ECG When compared with ECG of 10-JAN-2023 17:41, Minimal criteria for Anterior infarct are no longer Present T wave inversion more evident in Anterolateral leads Confirmed by Mike Muniz ([id number]) on 01/11/2023 12:04:27 PM Referred By: [facility] Confirmed By:Jose Muniz
--- NOTE | 2023-01-11 15:48 | Pharmacy Report ---
Pharmacy Glycemic Short Note 2 - Date of Service January 11, 2023 - Glycemic Short BSG Results (Last 24 hours): 01/10/23 01/10/23 01/10/23 15:35 16:25 17:01 Glucose 655 H* POC Glucose > 600 H* > 600 H* 01/10/23 01/10/23 01/10/23 18:06 19:30 19:31 Glucose 496 H* POC Glucose 557 H* 469 H* 01/10/23 01/10/23 01/10/23 20:28 21:29 22:24 Glucose POC Glucose 368 H* 356 H* 288 H 01/10/23 01/10/23 01/11/23 22:33 23:38 00:25 Glucose 320 H* POC Glucose 280 H 334 H* 01/11/23 01/11/23 01/11/23 01:33 02:15 02:32 Glucose 329 H* POC Glucose 283 H 349 H* 01/11/23 01/11/23 01/11/23 03:32 04:36 05:32 Glucose POC Glucose 354 H* 341 H* 293 H 01/11/23 01/11/23 01/11/23 06:05 06:27 08:32 Glucose 335 H* POC Glucose 304 H* 298 H 01/11/23 01/11/23 01/11/23 10:34 11:41 12:42 Glucose POC Glucose 275 H 288 H 285 H 01/11/23 01/11/23 13:43 15:02 Glucose POC Glucose 292 H 228 H OUTPATIENT ANTIDIABETIC REGIMEN: * Metformin 500 mg BID * A1c: 15.8 01/11/23 ASSESSMENT: * Discussed insulin infusion transition at ICU rounds and with hospitalist provider based on pertinent labs and clinical parameters. Patient likely basally deficient and somewhat insulin resistant given new diagnosis and elevated A1c. * In an attempt to set up for insulin drip transition, dextrose containing fluids were stopped and goal range was lowered to 140-180 mg/dL this morning. Despite this, BSGs and drip rate remain elevated. A weight based, high stressed SC basal insulin dose was ordered at 1200 today. Patient also started a diet at that time, so BSGs obtained postprandial should be interpreted accordingly. Will continue insulin infusion and SC basal overlap until drip rate decreases to ~ 2 units/hr or if BSG downtrends quickly and significantly. Discussed ongoing infusion and lack of IV potassium with the provider and a repeat level will be obtained this evening. PLAN FOR INPATIENT GLYCEMIC CONTROL: * Hold outpatient oral diabetes medications * Continue insulin infusion overlapping with SC basal insulin until drip rate ~2 units/hr or less or if BSG downtrends rapidly (pending order entered) * Basal insulin * Lantus 40 units SQ X 1 @ 1200 * Bolus insulin while on insulin infusion: * Nutritional / Prandial insulin per carb ratio of 1 unit per 7 grams CHO consumed * Bolus insulin after insulin infusion stopped * NovoLog per scale ACHS or Q6hrs while NPO and overnight checks * Goal Range: Low 110 mg/dL - High 140 mg/dL * Correction Factor: 20 mg/dL/unit * Nutritional / Prandial insulin per carb ratio of 1 unit per 7 grams CHO consumed
[2023-01-11] MEDS: INSULIN REGULAR 250 UNITS in SODIUM CHLORIDE 0.9% 247.5 ML IV SCH (17:37)
[2023-01-11 20:19] LABS: BUN Creatinine Ratio 19.8 (10-20); Calcium 8.5 mg/dl (8.6-10.3); Creatinine Clr Calc Pharmacy 76.1 ml/min; Est GFR (African American) 79.9 ml/min; Est GFR (Non-African American) 68.9 ml/min; Magnesium 1.7 mg/dl (1.7-2.4); Phosphorus 3.2 mg/dl (2.5-4.9); Potassium 4.2 mmol/L (3.5-5.1)
[2023-01-11] MEDS: ENOXAPARIN INJ 40 MG/0.4 ML SYR SQ SCH (22:25)
[2023-01-11] MEDS: NICOTINE 21 MG/24 HR TDSY TD SCH (22:25)
[2023-01-11] MEDS: ATORVASTATIN 10 MG TAB PO SCH (22:26)
[2023-01-11] MEDS: PHENAZOPYRIDINE HCL 100 MG TAB PO SCH (22:39)
[2023-01-11 22:47] LABS: Appearance Urine Clear (Clear); Bacteria Urine Automated Negative (Negative); Bilirubin Urine Negative (Negative); Blood Urine Negative (Negative); Color Urine Yellow; Epithelial Cell Urine Auto >30 /lpf (0-5); Glucose Urine UA 3+ (Negative); Ketones Urine Negative (Negative); Leukocyte Esterase Urine Trace (Negative); Nitrite Urine Negative (Negative); Protein Urine Trace (Negative); Specific Gravity Urine 1.029 (1.000-1.030); Urobilinogen Urine Negative (Negative)
[2023-01-12] MEDS: INSULIN ASPART PER UNIT CHARGE SC SCH ×6 (00:12→21:11)
[2023-01-12 04:56] LABS: Hematocrit (blood only) 39.2 % (42.0-52.0); Hemoglobin 13.5 g/dl (14.0-18.0); Mean Corpuscular Hemoglobin 29.8 pg (25.0-34.0); Mean Corpuscular Hgb Conc 34.4 g/dL (32.0-36.0); Mean Corpuscular Volume 86.5 fL (80.0-100.0); Mean Platelet Volume 12.6 fL (9.4-12.4); Platelet Count 149 K/uL (130-400); RDW Coefficient of Variation 11.9 % (11.5-14.5); RDW Standard Deviation 37.3 fL (36.4-46.3); Red Blood Count 4.53 M/uL (4.70-6.10)
[2023-01-12 05:04] LABS: BUN Creatinine Ratio 22.4 (10-20); Calcium 8.5 mg/dl (8.6-10.3); Est GFR (Non-African American) 88.9 ml/min; Magnesium 1.7 mg/dl (1.7-2.4); Potassium 3.8 mmol/L (3.5-5.1)
[2023-01-12] MEDS: lisinopril 20 MG TAB PO SCH (08:03)
[2023-01-12] MEDS: carvediloL 3.125 MG TAB PO SCH ×2 (08:03→16:46)
[2023-01-12] MEDS: PHENAZOPYRIDINE HCL 100 MG TAB PO SCH ×3 (08:06→21:11)
[2023-01-12] MEDS: NICOTINE 21 MG/24 HR TDSY TD SCH (08:06)
[2023-01-12] MEDS ORDERED: LANTUS PER UNIT CHARGE SC SCH ×3 (09:00→21:00)
[2023-01-12] MEDS: MAGNESIUM SULFATE / D5W 1 GM/100 ML BAG IV SCH ×2 (10:56→12:51)
[2023-01-12] MEDS ORDERED: INSULIN HUMAN REGULAR PER UNIT 5 UNITS in SYRINGE 4.95 ML IV ONE (12:30)
--- NOTE | 2023-01-12 14:02 | Pharmacy Report ---
Pharmacy Glycemic Short Note 2 - Date of Service January 12, 2023 - Glycemic Short BSG Results (Last 24 hours): 01/11/23 01/11/23 01/11/23 15:02 16:04 17:38 Glucose POC Glucose 228 H 205 H 167 H 01/11/23 01/11/23 01/11/23 18:44 19:24 19:46 Glucose 133 H POC Glucose 144 H 131 H 01/11/23 01/11/23 01/12/23 22:24 23:55 03:39 Glucose 209 H POC Glucose 117 H 89 01/12/23 01/12/23 01/12/23 04:35 07:23 11:06 Glucose POC Glucose 202 H 179 H 403 H* 01/12/23 11:07 Glucose POC Glucose 451 H* OUTPATIENT ANTIDIABETIC REGIMEN: * Metformin 500 mg BID * A1c: 15.8 01/11/23 ASSESSMENT: 01/12: * Patient successfully transitioned off the infusion last evening without additional basal insulin. This mornings fasting was 179 mg/dL. Initially, the total daily dose form yesterday was split to allow for scaled flexibility. However lunchtime BSG was > 400 mg/dL X 2. I did confirm with nurse that this was pre-prandial and there was nothing he consumed prior to the BSG draw that would indicate falsely elevated BSGs. At that time I did add additional basal insulin, tighten novolog CR and give a small IV bolus dose. Will add a small lantus scale this evening as well. * Patient is tolerating a diet. 01/11 * Discussed insulin infusion transition at ICU rounds and with hospitalist provider based on pertinent labs and clinical parameters. Patient likely basally deficient and somewhat insulin resistant given relatively new diagnosis and elevated A1c. * In an attempt to set up for insulin drip transition, dextrose containing fluids were stopped and goal range was lowered to 140-180 mg/dL this morning. Despite this, BSGs and drip rate remain elevated. A weight based, high stressed SC basal insulin dose was ordered at 1200 today. Patient also started a diet at that time, so BSGs obtained postprandial should be interpreted accordingly. Will continue insulin infusion and SC basal overlap until drip rate decreases to ~ 2 units/hr or if BSG downtrends quickly and significantly. Discussed ongoing infusion and lack of IV potassium with the provider and a repeat level will be obtained this evening. PLAN FOR INPATIENT GLYCEMIC CONTROL: * Hold outpatient oral diabetes medications * Continue insulin infusion overlapping with SC basal insulin until drip rate ~2 units/hr or less or if BSG downtrends rapidly (pending order entered) * Basal insulin * Lantus 40 units SQ (20 units in the AM 20 units at lunchtime) * Lantus scale this evening (0, 5, or 10 units based on BSG) * Bolus insulin after insulin infusion stopped * NovoLog per scale ACHS or Q6hrs while NPO and overnight checks * Goal Range: Low 110 mg/dL - High 140 mg/dL * Correction Factor: 20 mg/dL/unit * Nutritional / Prandial insulin per carb ratio of 1 unit per 5 grams CHO consumed
--- NOTE | 2023-01-12 14:24 | Hospitalist Progress Note ---
Date of Service January 12, 2023 Assessment & Plan (1) Hyperosmolar hyperglycemic state (HHS): (2) Pseudohyponatremia: (3) Acute hyperkalemia: (4) [place] (acute kidney injury): (5) Dehydration: (6) HTN (hypertension): (7) HLD (hyperlipidemia): (8) Hyperglycemia due to type 2 diabetes mellitus: (9) Smoker: Plan 52 yr old M who has a significant PMH of HTN and HLD presents to ED 2/2 frequent urinating, difficulty urinating and incontinence over last 3 days. He is incarc erated at [facility]. He states he was diagnosed with type 2 diabetes 3 weeks ago. HHS T2DM -newly dx 3 weeks ago admit to ICU 2/2 HHS and electrolyte derangements requiring freq lab monitoring Glycemic pharmacist involved in management, transitioned off insulin drip overnight, continue basal bolus insulin with titration as needed HHS resolved and downgraded to PCU (01/11) admitting CXR ? congestive change, cardiomegaly this appears to have resolved on repeat CXR, euvolemic on exam Dysuria: repeat check for UTI was negative for infection. urine for chlamydia and gonorrhea is pending. Continue Pyridium for comfort Acute Hyperkalemia-resolved K initially 6.5, repeat 4 hrs later 6.7 he did receive 1g calcium gluconate and 50meq amp of bicarb without much improvement pt received insulin bolus, gtt, resolved. Labs in am. [place]-resolved unknown baseline cr; elevated to 1.66 on admission 2/2 severe dehydration in setting of HHS. resolved after IVF resuscitation. Pseudohyponatremia-resolved initial ma 116, corrected 130 repeat corrected 135 continue to monitor-resolved. HTN on lisinopril/coreg as outpatient chronic, stable, cont current therapy HLD continue statin chronic, stable Smoker: encouraged to quit. Nicoderm patch provided. DVT ppx: Lovenox, FULL CODE Dispo: from [facility], to return once medically stable I spent a total [id number] coordinating, documenting, and providing care for this patient excluding time spent in the performance of separately billed services DO [facility] Hospitalist Admission and Anticipated Discharge Date Admission Date: January 10, 2023 Subjective 52 yo new onset diabetic presents with HHS Urinary symptoms now improved Patient was transitioned off insulin drip last evening Blood sugar this morning has been well controlled however he recently was shilpi cked and was 400 IV insulin given per glycemic pharmacist who has been communicating with me today Patient overall feels much better reporting no dysuria and urinary frequency decreased Physical Exam Physical Exam: CONSTITUTIONAL: WNWD, vitals as above, generally well-appearing, NAD EYES: normal conjunctivae, no scleral icterus ENT: external ear and nose normal, oropharynx clear, poor dentition NECK: trachea midline RESPIRATORY: clear to auscultation bilaterally, no crackles, rales or wheezes, normal respiratory effort CARDIOVASCULAR: regular rate and rhythm, S1 and 2 heard without murmurs, gallops or rubs, no JVD, no peripheral edema CHEST: inspection of chest was normal GASTROINTESTINAL: soft, nontender, ND, no guarding MUSCULOSKELETAL: strength 5/5 throughout, head is normocephalic and atraumatic SKIN: warm and dry NEUROLOGIC: CN 2-12 grossly intact, no sensory deficit, normal cognition, normal speech, no tremor PSYCHIATRIC: alert cooperative and oriented to person, place and time. Euthymic mood, makes good eye contact, language grossly intact, recent and remote memory grossly intact. Results & Data Results & Data Vital Signs (Past 12 Hours) Vital Signs Temp Pulse Resp BP Pulse Ox O2 Del Method 01/12/23 12:05 115/58 L 01/12/23 12:05 74 20 97 01/12/23 12:00 78 19 96 01/12/23 12:00 105/71 01/12/23 11:55 108/67 01/12/23 11:55 79 23 95 01/12/23 11:50 81 22 94 01/12/23 11:50 109/70 01/12/23 11:45 87 19 96 01/12/23 11:45 114/80 01/12/23 11:40 88 26 H 97 01/12/23 11:40 127/60 01/12/23 11:35 119/67 01/12/23 11:35 88 16 96 01/12/23 11:31 81 20 98 01/12/23 11:31 114/65 01/12/23 11:26 83 17 97 01/12/23 11:26 142/89 H 01/12/23 11:20 142/89 H 01/12/23 11:20 83 20 97 01/12/23 11:15 121/86 01/12/23 11:15 86 22 97 01/12/23 11:10 126/78 01/12/23 11:10 88 21 96 01/12/23 11:05 127/84 01/12/23 11:05 85 24 97 01/12/23 11:00 140/75 01/12/23 11:00 83 21 97 01/12/23 10:55 117/74 01/12/23 10:55 88 25 H 96 01/12/23 10:50 85 20 97 01/12/23 10:50 112/63 01/12/23 10:45 112/63 01/12/23 10:45 75 17 96 01/12/23 10:40 108/62 01/12/23 10:40 78 19 96 01/12/23 10:35 117/67 01/12/23 10:35 82 20 95 01/12/23 10:30 113/59 L 01/12/23 10:30 85 19 97 01/12/23 10:25 106/57 L 01/12/23 10:25 80 18 97 01/12/23 10:20 123/68 01/12/23 10:20 81 21 97 01/12/23 10:15 131/83 01/12/23 10:15 91 H 19 98 01/12/23 10:10 112/67 01/12/23 10:10 80 15 97 01/12/23 10:05 111/63 01/12/23 10:05 81 15 96 01/12/23 08:00 92 H 01/12/23 07:46 86 22 100 01/12/23 07:46 125/78 01/12/23 07:40 81 22 99 01/12/23 07:40 120/76 01/12/23 07:35 90 19 99 01/12/23 07:35 122/75 01/12/23 07:35 122/75 01/12/23 07:30 90 18 99 01/12/23 07:30 118/80 01/12/23 07:20 112/72 01/12/23 07:20 71 18 98 01/12/23 07:15 76 19 97 01/12/23 07:15 123/74 01/12/23 07:15 123/74 01/12/23 07:10 127/86 01/12/23 07:10 72 19 98 01/12/23 07:05 132/81 01/12/23 07:05 72 18 98 01/12/23 06:05 64 16 97 01/12/23 06:05 132/81 01/12/23 06:00 142/82 H 01/12/23 06:00 62 14 98 01/12/23 05:55 67 16 98 01/12/23 05:55 148/89 H 01/12/23 05:50 122/91 01/12/23 05:50 88 19 97 01/12/23 05:45 135/84 01/12/23 05:45 66 12 97 01/12/23 05:40 145/85 H 01/12/23 05:40 72 1 L 98 01/12/23 05:35 155/76 H 01/12/23 05:35 70 8 L 98 01/12/23 05:30 133/80 01/12/23 05:30 68 0 L 97 01/12/23 05:25 62 5 L 98 01/12/23 05:25 143/83 H 01/12/23 05:20 139/83 01/12/23 05:20 62 13 98 01/12/23 05:15 134/83 01/12/23 05:15 63 13 97 01/12/23 05:10 141/81 H 01/12/23 05:10 61 5 L 97 01/12/23 05:05 144/83 H 01/12/23 05:05 65 16 98 01/12/23 05:00 135/83 01/12/23 05:00 62 18 98 01/12/23 04:55 138/82 01/12/23 04:55 64 17 98 01/12/23 04:50 130/81 01/12/23 04:50 74 19 97 01/12/23 04:40 123/90 01/12/23 04:40 75 14 99 01/12/23 04:35 136/75 01/12/23 04:35 73 18 98 01/12/23 04:30 125/78 01/12/23 04:30 67 17 98 01/12/23 04:25 133/77 01/12/23 04:23 67 18 98 01/12/23 04:15 133/75 01/12/23 04:15 68 19 98 01/12/23 04:10 74 18 98 01/12/23 04:10 134/79 01/12/23 04:05 106/80 01/12/23 04:05 71 19 98 01/12/23 04:00 73 19 98 01/12/23 04:00 127/82 01/12/23 04:00 36.8 C Room Air 01/12/23 03:55 127/76 01/12/23 03:55 69 17 98 01/12/23 03:45 75 18 98 01/12/23 03:45 135/81 01/12/23 03:40 134/85 01/12/23 03:39 67 19 98 01/12/23 03:30 136/76 01/12/23 03:30 65 16 99 01/12/23 03:25 131/80 01/12/23 03:25 66 19 98 01/12/23 03:20 152/83 H 01/12/23 03:20 65 17 98 01/12/23 03:15 80 24 98 01/12/23 03:15 146/100 H 01/12/23 03:10 63 17 98 01/12/23 03:10 128/73 01/12/23 03:05 69 16 97 01/12/23 03:05 130/77 01/12/23 03:00 139/71 01/12/23 03:00 66 17 98 01/12/23 02:55 120/79 01/12/23 02:55 66 15 97 01/12/23 02:50 130/74 01/12/23 02:50 68 15 98 01/12/23 02:45 137/75 01/12/23 02:45 67 20 98 01/12/23 02:35 110/74 01/12/23 02:35 63 17 97 01/12/23 02:30 121/79 01/12/23 02:30 67 17 98 01/12/23 02:25 76 17 98 01/12/23 02:25 133/76 Laboratory Results Short CBC 01/12/23 Range/Units 03:39 WBC 7.10 (4.8-10.8) K/ul Hgb 13.5 L (14.0-18.0) g/dl Hct 39.2 L (42.0-52.0) % Plt Count 149 (130-400) K/uL BMP 01/11/23 01/12/23 19:24 03:39 Sodium 136 133 L Potassium 4.2 3.8 Chloride 103 101 Carbon Dioxide 26 24 BUN 24 H 22 Creatinine 1.21 0.98 Glucose 133 H 209 H Calcium 8.5 L 8.5 L Urine 01/11/23 Range/Units 20:00 Urine Color Yellow Urine Appearance Clear (Clear) Urine pH 6.0 (4.5-7.5) Ur Specific [place] 1.029 (1.000-1.030) Urine Protein Trace H (Negative) Urine Glucose (UA) 3+ H (Negative) Medications Administered Current Inpatient Medications Acetaminophen (Acetaminophen 325 Mg Tab) 650 mg PO Q4H PRN PRN Reason: Pain or Fever Stop: 02/09/23 18:51 Al Hydrox/Mg Hydrox/Simethicone (Aluminum/Magnesium Susp 30 Ml Udc) 15 ml PO Q4H PRN PRN Reason: Dyspepsia Stop: 02/09/23 18:51 Albuterol (Albuterol 0.083% Nebu Soln 3 Ml Vial) 2.5 mg NEB Q6R PRN; Protocol PRN Reason: wheeze, coughing Stop: 02/09/23 19:56 Atorvastatin Calcium (Atorvastatin 10 Mg Tab) 10 mg PO HS NUNU Stop: 02/10/23 20:59 Last Admin: 01/11/23 22:26 Dose: 10 mg Carvedilol (Carvedilol 3.125 Mg Tab) 3.125 mg PO BIDM NUNU Stop: 02/09/23 20:59 Last Admin: 01/12/23 08:03 Dose: 3.125 mg Dextrose (Dextrose 50% 50 Ml Syringe) 25 - 50 ml IV UD PRN; Protocol PRN Reason: Hypoglycemia Protocol Stop: 02/09/23 15:44 Enoxaparin Sodium (Enoxaparin Inj 40 Mg/0.4 Ml Syr) 40 mg SQ HS NUNU Stop: 02/09/23 20:59 Last Admin: 01/11/23 22:25 Dose: 40 mg Glucagon (Glucagon For Inj 1 Mg Vial) 1 mg IM UD PRN; Protocol PRN Reason: Hypoglycemia Protocol Stop: 02/09/23 15:44 Glucose (Glucose 40% Gel 15 Gm Tube) 15 - 30 gm PO UD PRN; Protocol PRN Reason: Hypoglycemia Protocol Stop: 02/09/23 15:44 Glucose (Glucose 10 Tab/Tube) 4 - 8 tab PO UD PRN; Protocol PRN Reason: Hypoglycemia Protocol Stop: 02/09/23 15:44 Insulin Aspart (Insulin Aspart Per Unit Charge) 0 units SC ACHS [facility] Stop: 02/10/23 20:59 Last Admin: 01/12/23 12:50 Dose: 30 units Insulin Aspart (Insulin Aspart Per Unit Charge) 0 units SC 0000,[id number] [facility] Stop: 01/13/23 04:01 Insulin Glargine (Lantus Per Unit Charge) 0 units SC HS [facility]; Protocol Stop: 01/12/23 21:01 Lisinopril (Lisinopril 20 Mg Tab) 20 mg PO QAM [facility] Stop: 02/11/23 08:59 Last Admin: 01/12/23 08:03 Dose: 20 mg Magnesium Hydroxide (Magnesium Hydroxide Susp 30 Ml Udc) 30 ml PO Q12H PRN PRN Reason: Constipation Stop: 02/09/23 18:51 Miscellaneous (Carbohydrates For Hypoglycemia ) 15 - 30 gm PO UD PRN PRN Reason: Hypoglycemia Treatment Stop: 02/09/23 15:44 Miscellaneous (Remove Nicoderm Patch) 1 each N/A DAILY@0859 [facility] Stop: 02/11/23 08:58 Last Admin: 01/12/23 08:03 Dose: 1 each Miscellaneous Information (Pharmacy Glycemic Mgmt Consult) 1 each N/A UD PRN PRN Reason: Consult Stop: 02/09/23 18:51 Nicotine (Nicotine 21 Mg/24 Hr Tdsy) 21 mg TD QAM [facility] Stop: 02/10/23 19:14 Last Admin: 01/12/23 08:06 Dose: 21 mg Ondansetron HCl (Ondansetron Inj 2 Mg/Ml 2 Ml Vial) 4 mg IV Q6H PRN PRN Reason: Nausea Stop: 02/09/23 18:51 Phenazopyridine HCl (Phenazopyridine Hcl 100 Mg Tab) 100 mg PO TID [facility] Stop: 01/14/23 20:59 Last Admin: 01/12/23 14:20 Dose: 100 mg Polyethylene Glycol (Polyethylene (Miralax) 17 Gm Pack) 17 gm PO DAILY PRN PRN Reason: Constipation Stop: 02/09/23 18:51 (8) Hyperglycemia due to type 2 diabetes mellitus Diabetes mellitus terminal computer operator insulin use: with terminal computer operator use Qualified Code(s): E11.65 - Type 2 diabetes mellitus with hyperglycemia; Z79.4 - terminal computer operator (current) use of insulin
[2023-01-12] MEDS ORDERED: MAGNESIUM SULFATE / D5W 1 GM/100 ML BAG IV ONE (20:37)
[2023-01-12] MEDS ORDERED: POTASSIUM CHLORIDE CRTAB 20 MEQ TABCR PO STA (20:38)
[2023-01-12] MEDS: ATORVASTATIN 10 MG TAB PO SCH (21:12)
[2023-01-12] MEDS: ENOXAPARIN INJ 40 MG/0.4 ML SYR SQ SCH (21:12)
[2023-01-13] MEDS: INSULIN ASPART PER UNIT CHARGE SC SCH ×7 (00:17→20:59)
[2023-01-13 03:51] LABS: Hematocrit (blood only) 39.4 % (42.0-52.0); Hemoglobin 13.3 g/dl (14.0-18.0); Mean Corpuscular Hemoglobin 29.4 pg (25.0-34.0); Mean Corpuscular Hgb Conc 33.8 g/dL (32.0-36.0); Mean Corpuscular Volume 87.2 fL (80.0-100.0); Mean Platelet Volume 11.9 fL (9.4-12.4); Platelet Count 149 K/uL (130-400); RDW Coefficient of Variation 11.9 % (11.5-14.5); RDW Standard Deviation 38.1 fL (36.4-46.3); Red Blood Count 4.52 M/uL (4.70-6.10); White Blood Count 5.88 K/ul (4.8-10.8)
[2023-01-13 04:07] LABS: BUN Creatinine Ratio 18.4 (10-20); Calcium 8.3 mg/dl (8.6-10.3); Creatinine Clr Calc Pharmacy 106.3 ml/min; Est GFR (African American) 115.8 ml/min; Est GFR (Non-African American) 99.9 ml/min; Potassium 3.9 mmol/L (3.5-5.1)
[2023-01-13] MEDS: PHENAZOPYRIDINE HCL 100 MG TAB PO SCH ×3 (08:04→20:47)
[2023-01-13] MEDS: carvediloL 3.125 MG TAB PO SCH ×2 (08:04→16:41)
[2023-01-13] MEDS: lisinopril 20 MG TAB PO SCH (08:04)
[2023-01-13] MEDS: NICOTINE 21 MG/24 HR TDSY TD SCH (08:05)
[2023-01-13] MEDS: LANTUS PER UNIT CHARGE SC SCH (08:13)
--- NOTE | 2023-01-13 10:10 | Hospitalist Progress Note ---
Date of Service January 13, 2023 Assessment & Plan (1) Hyperosmolar hyperglycemic state (HHS): (2) Pseudohyponatremia: (3) Acute hyperkalemia: (4) [place] (acute kidney injury): (5) Dehydration: (6) HTN (hypertension): (7) HLD (hyperlipidemia): (8) Hyperglycemia due to type 2 diabetes mellitus: (9) Smoker: Plan 52 yr old M who has a significant PMH of HTN and HLD presents to ED 2/2 frequent urinating, difficulty urinating and incontinence over last 3 days. He is incarc erated at [facility]. He states he was diagnosed with type 2 diabetes 3 weeks ago. HHS T2DM -newly dx 3 weeks ago admit to ICU 2/2 HHS and electrolyte derangements requiring freq lab monitoring Glycemic pharmacist involved in management, transitioned off insulin drip overnight, continue basal bolus insulin with titration as needed HHS resolved and downgraded to PCU (01/11) admitting CXR ? congestive change, cardiomegaly this appears to have resolved on repeat CXR, euvolemic on exam Hypercarbic respiratory failure likely 2/2 encephalopathy?/drowsiness with lack of sleep for few days prior to arrival in setting of smoking-resolved. Stop nightly CPAP. Followup with PCP as outpatient. Dysuria: repeat check for UTI was negative for infection. urine for chlamydia and gonorrhea is pending. Continue Pyridium for comfort Acute Hyperkalemia-resolved K initially 6.5, repeat 4 hrs later 6.7 he did receive 1g calcium gluconate and 50meq amp of bicarb without much improvement pt received insulin bolus, gtt, resolved. Labs in am. [place]-resolved unknown baseline cr; elevated to 1.66 on admission 2/2 severe dehydration in setting of HHS. resolved after IVF resuscitation. Pseudohyponatremia-resolved initial ma 116, corrected 130 repeat corrected 135 continue to monitor-resolved. HTN on lisinopril/coreg as outpatient chronic, stable, cont current therapy HLD continue statin chronic, stable Smoker: encouraged to quit. Nicoderm patch provided. DVT ppx: Lovenox, FULL CODE Dispo: from [facility], to return once medically stable I spent a total [id number] coordinating, documenting, and providing care for this patient excluding time spent in the performance of separately billed services Tisha Randle DO [facility] Hospitalist Admission and Anticipated Discharge Date Admission Date: January 10, 2023 Subjective 52 yo new onset diabetic presents with HHS Urinary symptoms now improved Blood sugar improved but varied in insulin needs Patient overall feels much better reporting no dysuria and urinary frequency decreased We went over the symptoms of hyper and hypoglycemia and he was able to reiterate these We reviewed the two types if insulin and why/what the role of insulin is. He verbalized understanding. He would like to shower DC telemetry Planning for dc to home tomorrow once we have a stable insulin regimen. Encouraged mobility around the room as allowed by the guards. Physical Exam Physical Exam: CONSTITUTIONAL: WNWD, vitals as above, generally well-appearing, NAD EYES: normal conjunctivae, no scleral icterus ENT: external ear and nose normal, oropharynx clear, poor dentition NECK: trachea midline RESPIRATORY: clear to auscultation bilaterally, no crackles, rales or wheezes, normal respiratory effort CARDIOVASCULAR: regular rate and rhythm, S1 and 2 heard without murmurs, gallops or rubs, no JVD, no peripheral edema CHEST: inspection of chest was normal GASTROINTESTINAL: soft, nontender, ND, no guarding MUSCULOSKELETAL: strength 5/5 throughout, head is normocephalic and atraumatic SKIN: warm and dry NEUROLOGIC: CN 2-12 grossly intact, no sensory deficit, normal cognition, normal speech, no tremor PSYCHIATRIC: alert cooperative and oriented to person, place and time. Euthymic mood, makes good eye contact, language grossly intact, recent and remote memory grossly intact. Results & Data Results & Data Vital Signs (Past 12 Hours) Vital Signs Temp Pulse Pulse Resp BP BP Pulse Ox 01/13/23 08:00 83 16 01/13/23 08:00 36.8 C 01/13/23 07:28 67 15 01/13/23 07:28 120/66 01/13/23 07:00 73 16 95 01/13/23 04:00 36.5 C 64 15 105/64 98 01/13/23 00:45 36.9 C 66 18 103/56 L 98 01/13/23 00:07 68 18 103/56 L 01/13/23 00:07 103/56 L 01/13/23 00:06 65 12 01/13/23 00:06 93/57 L 01/13/23 00:00 76 17 01/13/23 00:00 64 01/13/23 00:00 36.8 C 70 12 103/56 L 95 01/12/23 23:00 63 13 01/12/23 22:44 63 18 01/12/23 22:44 114/66 01/12/23 22:44 114/66 O2 Del Method 01/13/23 08:00 01/13/23 08:00 01/13/23 07:28 01/13/23 07:28 01/13/23 07:00 Room Air 01/13/23 04:00 Room Air 01/13/23 00:45 Room Air 01/13/23 00:07 01/13/23 00:07 01/13/23 00:06 01/13/23 00:06 01/13/23 00:00 01/13/23 00:00 01/13/23 00:00 Room Air 01/12/23 23:00 01/12/23 22:44 01/12/23 22:44 01/12/23 22:44 Laboratory Results Short CBC 01/13/23 Range/Units 03:29 WBC 5.88 (4.8-10.8) K/ul Hgb 13.3 L (14.0-18.0) g/dl Hct 39.4 L (42.0-52.0) % Plt Count 149 (130-400) K/uL BMP 01/13/23 03:29 Sodium 134 L Potassium 3.9 Chloride 106 Carbon Dioxide 26 BUN 16 Creatinine 0.87 Glucose 92 Calcium 8.3 L Medications Administered Current Inpatient Medications Acetaminophen (Acetaminophen 325 Mg Tab) 650 mg PO Q4H PRN PRN Reason: Pain or Fever Stop: 02/09/23 18:51 Al Hydrox/Mg Hydrox/Simethicone (Aluminum/Magnesium Susp 30 Ml Udc) 15 ml PO Q4H PRN PRN Reason: Dyspepsia Stop: 02/09/23 18:51 Albuterol (Albuterol 0.083% Nebu Soln 3 Ml Vial) 2.5 mg NEB Q6R PRN; Protocol PRN Reason: wheeze, coughing Stop: 02/09/23 19:56 Atorvastatin Calcium (Atorvastatin 10 Mg Tab) 10 mg PO HS NUNU Stop: 02/10/23 20:59 Last Admin: 01/12/23 21:12 Dose: 10 mg Carvedilol (Carvedilol 3.125 Mg Tab) 3.125 mg PO BIDM NUNU Stop: 02/09/23 20:59 Last Admin: 01/13/23 08:04 Dose: 3.125 mg Dextrose (Dextrose 50% 50 Ml Syringe) 25 - 50 ml IV UD PRN; Protocol PRN Reason: Hypoglycemia Protocol Stop: 02/09/23 15:44 Enoxaparin Sodium (Enoxaparin Inj 40 Mg/0.4 Ml Syr) 40 mg SQ HS NUNU Stop: 02/09/23 20:59 Last Admin: 01/12/23 21:12 Dose: 40 mg Glucagon (Glucagon For Inj 1 Mg Vial) 1 mg IM UD PRN; Protocol PRN Reason: Hypoglycemia Protocol Stop: 02/09/23 15:44 Glucose (Glucose 40% Gel 15 Gm Tube) 15 - 30 gm PO UD PRN; Protocol PRN Reason: Hypoglycemia Protocol Stop: 02/09/23 15:44 Glucose (Glucose 10 Tab/Tube) 4 - 8 tab PO UD PRN; Protocol PRN Reason: Hypoglycemia Protocol Stop: 02/09/23 15:44 Insulin Aspart (Insulin Aspart Per Unit Charge) 0 units SC ACHS [facility] Stop: 02/10/23 20:59 Last Admin: 01/13/23 08:12 Dose: 14 units Insulin Glargine (Lantus Per Unit Charge) 45 units SC DAILY NUNU Stop: 02/12/23 08:59 Last Admin: 01/13/23 08:13 Dose: 45 units Lisinopril (Lisinopril 20 Mg Tab) 20 mg PO QAM [facility] Stop: 02/11/23 08:59 Last Admin: 01/13/23 08:04 Dose: 20 mg Magnesium Hydroxide (Magnesium Hydroxide Susp 30 Ml Udc) 30 ml PO Q12H PRN PRN Reason: Constipation Stop: 02/09/23 18:51 Miscellaneous (Carbohydrates For Hypoglycemia ) 15 - 30 gm PO UD PRN PRN Reason: Hypoglycemia Treatment Stop: 02/09/23 15:44 Miscellaneous (Remove Nicoderm Patch) 1 each N/A DAILY@0859 [facility] Stop: 02/11/23 08:58 Last Admin: 01/13/23 08:06 Dose: 1 each Miscellaneous Information (Pharmacy Glycemic Mgmt Consult) 1 each N/A UD PRN PRN Reason: Consult Stop: 02/09/23 18:51 Nicotine (Nicotine 21 Mg/24 Hr Tdsy) 21 mg TD QAM [facility] Stop: 02/10/23 19:14 Last Admin: 01/13/23 08:05 Dose: 21 mg Ondansetron HCl (Ondansetron Inj 2 Mg/Ml 2 Ml Vial) 4 mg IV Q6H PRN PRN Reason: Nausea Stop: 02/09/23 18:51 Phenazopyridine HCl (Phenazopyridine Hcl 100 Mg Tab) 100 mg PO TID [facility] Stop: 01/14/23 20:59 Last Admin: 01/13/23 08:04 Dose: 100 mg Polyethylene Glycol (Polyethylene (Miralax) 17 Gm Pack) 17 gm PO DAILY PRN PRN Reason: Constipation Stop: 02/09/23 18:51 (8) Hyperglycemia due to type 2 diabetes mellitus Diabetes mellitus terminal make up operator insulin use: with nursing home use Qualified Code(s): E11.65 - Type 2 diabetes mellitus with hyperglycemia; Z79.4 - terminal make up operator (current) use of insulin
--- NOTE | 2023-01-13 12:06 | Pharmacy Report ---
Pharmacy Glycemic Short Note 2 - Date of Service January 13, 2023 - Glycemic Short BSG Results (Last 24 hours): 01/12/23 01/12/23 01/13/23 16:10 21:01 00:12 Glucose POC Glucose 91 148 H 102 H 01/13/23 01/13/23 01/13/23 03:29 04:03 07:27 Glucose 92 POC Glucose 102 H 118 H 01/13/23 11:26 Glucose POC Glucose 241 H OUTPATIENT ANTIDIABETIC REGIMEN: * Metformin 500 mg BID * A1c: 15.8 01/11/23 ASSESSMENT: 01/13: * BSGs the last 24h: [phone]/dL. Received 45 units of basal and 50 units of bolus insulin yesterday. * Tolerating diet. Other stressors stable. * Fasting BSG within goal this AM. Continue 45 units of Lantus daily. Novolog tightened at breakfast starting tomorrow for improved prandial coverage. 01/12: * Patient successfully transitioned off the infusion last evening without additional basal insulin. This mornings fasting was 179 mg/dL. Initially, the total daily dose form yesterday was split to allow for scaled flexibility. However lunchtime BSG was > 400 mg/dL X 2. I did confirm with nurse that this was pre-prandial and there was nothing he consumed prior to the BSG draw that would indicate falsely elevated BSGs. At that time I did add additional basal insulin, tighten novolog CR and give a small IV bolus dose. Will add a small lantus scale this evening as well. * Patient is tolerating a diet. 01/11 * Discussed insulin infusion transition at ICU rounds and with hospitalist provider based on pertinent labs and clinical parameters. Patient likely basally deficient and somewhat insulin resistant given relatively new diagnosis and elevated A1c. * In an attempt to set up for insulin drip transition, dextrose containing fluids were stopped and goal range was lowered to 140-180 mg/dL this morning. Despite this, BSGs and drip rate remain elevated. A weight based, high stressed SC basal insulin dose was ordered at 1200 today. Patient also started a diet at that time, so BSGs obtained postprandial should be interpreted accordingly. Will continue insulin infusion and SC basal overlap until drip rate decreases to ~ 2 units/hr or if BSG downtrends quickly and significantly. Discussed ongoing infusion and lack of IV potassium with the provider and a repeat level will be obtained this evening. PLAN FOR INPATIENT GLYCEMIC CONTROL: * Hold outpatient oral diabetes medications * Continue insulin infusion overlapping with SC basal insulin until drip rate ~2 units/hr or less or if BSG downtrends rapidly (pending order entered) * Basal insulin * Lantus 45 units SQ daily * Bolus insulin after insulin infusion stopped * NovoLog per scale ACHS or Q6hrs while NPO and overnight checks * Goal Range: Low 110 mg/dL - High 140 mg/dL * Correction Factor: 20 mg/dL/unit, 15mg/dl/unit (breakfast) * Nutritional / Prandial insulin per carb ratio of 1 unit per 5 grams (4grams @ breakfast) CHO consumed
--- NOTE | 2023-01-13 12:20 | Electrocardiogram Report ---
Test Reason : Blood Pressure : / mmHG Vent. Rate : 065 BPM Atrial Rate : 065 BPM P-R Int : 188 ms QRS Dur : 094 ms QT Int : 388 ms P-R-T Axes : -02 -23 -08 degrees QTc Int : 403 ms Normal sinus rhythm Low voltage QRS Abnormal ECG When compared with ECG of 11-JAN-2023 05:57, T wave inversion no longer evident in Anterior leads QT has shortened Confirmed by Mike Muniz ([id number]) on 01/13/2023 12:20:12 PM Referred By: [facility] Confirmed By:Jose Muniz
[2023-01-13 13:22] LABS: Chlam trach RNA(Genit,Ureth,Ur Not Detected (NotDetected); GC(Neis gon)RNA(Genit,Ureth,Ur Not Detected (NotDetected)
[2023-01-13] MEDS: ATORVASTATIN 10 MG TAB PO SCH (20:47)
[2023-01-13] MEDS: ENOXAPARIN INJ 40 MG/0.4 ML SYR SQ SCH (20:47)
[2023-01-14] MEDS ORDERED: INSULIN ASPART PER UNIT CHARGE SC SCH (07:30)
[2023-01-14 08:08] LABS: BUN Creatinine Ratio 15.3 (10-20); Calcium 8.2 mg/dl (8.6-10.3); Creatinine Clr Calc Pharmacy 109.4 ml/min; Est GFR (African American) 116.9 ml/min; Est GFR (Non-African American) 100.9 ml/min; Magnesium 1.7 mg/dl (1.7-2.4); Phosphorus 4.1 mg/dl (2.5-4.9); Potassium 3.8 mmol/L (3.5-5.1)
[2023-01-14] MEDS: carvediloL 3.125 MG TAB PO SCH ×2 (09:06→17:24)
[2023-01-14] MEDS: lisinopril 20 MG TAB PO SCH (09:06)
[2023-01-14] MEDS: PHENAZOPYRIDINE HCL 100 MG TAB PO SCH (09:07)
[2023-01-14] MEDS: NICOTINE 21 MG/24 HR TDSY TD SCH (09:07)
[2023-01-14] MEDS: LANTUS PER UNIT CHARGE SC SCH (09:11)
[2023-01-14] MEDS: INSULIN ASPART PER UNIT CHARGE SC SCH ×2 (12:38→17:25)
--- NOTE | 2023-01-14 12:55 | Discharge Summary ---
Discharge Summary Date of Service January 14, 2023 Notes For Next Care Provider Please check blood sugar both random and fasting daily to guide further titration of insulin A1C recommended in 3 months. Medication Changes From Visit glargine 45 Units every morning Novolin-R 10 Units TIDWM Admission HPI Per Admitting Provider 52 yr old M who has a significant PMH of HTN and HLD presents to ED 2/2 frequent urinating, difficulty urinating and incontinence over last 3 days. He is incarcerated at [facility]. He states he was diagnosed with type 2 di abetes 3 weeks ago. He was just prescribed metformin but has not yet started it. He states he was told he was, "borderline." He states symptoms started approximately 3 days ago whenever he developed frequent urination and inability to hold urine. "It was just running out." He states he was urinating on himself. He denies any recent illness, fever, chills, sweats, lightheadedness, dizziness, chest pain, shortness of breath, vomiting or diarrhea. He does admit to being slightly nauseated. He is very drowsy and states that he has not slept well over the last 2 days due to urinating. In ED patient found to have a blood sugar of 100. He was also found to have a pseudohyponatremia with a sodium of 116 but corrected to 130. He had hyperkalemia with a potassium of 6.5 and an CAROLINA with a creatinine 1.59. In ED he received 1 L of fluid bolus and started on maintenance Plasma-Lyte. He also received 1 g calcium gluconate and sodium bicarb for hyperkalemia. He was started on insulin bolus and drip. ROS slightly unreliable due to pt drowsy state. Unable to obtain surgical/social/FH other than pt being incarcerated. Principal Dx & Hospital Course #1 = Principal Diagnosis (1) Hyperosmolar hyperglycemic state (HHS): (2) DMII (diabetes mellitus, type 2): (3) Pseudohyponatremia: (4) Acute hyperkalemia: (5) CAROLINA (acute kidney injury): (6) Dehydration: (7) HTN (hypertension): (8) HLD (hyperlipidemia): (9) Hyperglycemia due to type 2 diabetes mellitus: (10) Smoker: Plan 52-year-old man with a recent diagnosis of diabetes myelitis type II approximately 3 weeks prior to arrival presented with hyperosmolar hyperglycemic state. He reported increased urination and dehydration. He also reported drinking sugary drinks which was not abnormal for him. He was not significantly tachypneic but noted to be weak on physical exam generally. He appeared to be hypovolemic and IV fluids were ordered as well as an insulin drip. Blood work revealed no significant anemia or leukocytosis. Sepsis was considered but felt to be less likely. Urinalysis revealed glucose blood and some trace ketones. Lab studies revealed with pseudohyponatremia that corrected to the low normal range in the 30- 35 area. He had a significant glucose elevation of 954 with no evidence of hepatitis or pancreatitis. He had an anion gap of 12 and a creatinine of 1.6. He had a significant potassium of 6.5. Insulin was administered and Plasma-Lyte was ordered for continued IV hydration cautiously in light of history by report of congestive heart failure in the past. Calcium gluconate was given as well as an amp of bicarbonate for hyperkalemia. Medina catheter was placed. Chest x-ray revealed possible fluid overload/congestive change. There was no evidence of pneumonia and PE was considered less likely. He was admitted to the ICU and resuscitation efforts were continued. 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 Acute renal failure was noted on lab work and his ABNER inhibitor was held. Metabolic derangements and glucose was improved after treatment and he was downgraded to PCU status. He continued to improve and ultimately was transitioned to basal bolus insulin. Hemoglobin A1c was 15.6. He was educated by diabetic nurse, and providers. Ongoing education will be needed. We will initially recommend basal bolus insulin and this was reviewed with medical personnel at [facility] on discharge. May be able to transition to oral or weekly injectables in a few months. At time of discharge he was hemodynamically stable and afebrile and tolerating p.o. He was discharged in stable condition with close primary care follow-up recommended. Smoking cessation also strongly recommended. Discharge Exam CONSTITUTIONAL: WNWD, vitals as above, generally well-appearing, NAD EYES: normal conjunctivae, no scleral icterus ENT: external ear and nose normal, oropharynx clear, poor dentition NECK: trachea midline RESPIRATORY: clear to auscultation bilaterally, no crackles, rales or wheezes, normal respiratory effort CARDIOVASCULAR: regular rate and rhythm, S1 and 2 heard without murmurs, gallops or rubs, no JVD, no peripheral edema CHEST: inspection of chest was normal GASTROINTESTINAL: soft, nontender, ND, no guarding MUSCULOSKELETAL: strength 5/5 throughout, head is normocephalic and atraumatic SKIN: warm and dry NEUROLOGIC: CN 2-12 grossly intact, no sensory deficit, normal cognition, normal speech, no tremor PSYCHIATRIC: alert cooperative and oriented to person, place and time. Eut hymic mood, makes good eye contact, language grossly intact, recent and remote memory grossly intact. Updated Medication List Medication Instructions Recorded Confirmed Type atorvastatin 10 mg tablet (Lipitor) 10 mg PO HS 01/10/23 01/10/23 History carvedilol 3.125 mg tablet 3.125 mg PO BID 01/10/23 01/10/23 History lisinopril 20 mg tablet 20 mg PO DAILY 01/10/23 01/10/23 History insulin glargine-yfgn 100 unit/mL 45 unit (0.45 mL) subcut QAM #15 mL 01/14/23 Rx (3 mL) subcutaneous pen (Semglee (insulin glargine-yfgn) Pen) insulin regular human 100 unit/mL 10 unit (0.1 mL) subcut TID #10 mL 01/14/23 Rx injection solution (Novolin R Regular U-100 Insulin) Hospital Stay Data Consultations 01/10/23 16:07 ED Decision to Admit Stat 01/10/23 17:33 Consult Coding File Clerk Routine Pending Results Patient Have Any Pending Studies at Discharge: No Discharge Instructions Given to Patient (Per Discharging Provider) Please take all medications as instructed on discharge list below. You are being placed on long and short acting insulin for better control of your blood sugar. This will be 4 injections daily for now, but down the road, you may be able to transition to pills or once weekly injections. Your goal hemoglobin A1C (average 3 month blood sugar) is <7. You are currently 15.8. Please stop taking the metformin at this time and continue with the insulin only. It is recommended to check your fasting sugar every day in the morning. The goal is <120. If you are seeing numbers higher than this, your long-acting insulin will need to be adjusted. Also, it is recommended to check your blood sugar after eating a meal. The goal is <180. If this is above 180, you may need more of the short acting insulin. Your primary provider will adjust based on future blood sugar readings. A lower carbohydrate/lower sugar diet will cause you to need less insulin, which is important to keep in mind when choosing your food. Smoking cessation is strongly recommended. It was a pleasure taking care of you! Total Time Total Time Spent Total Time Spent (In Minutes): 60
== END 2023-01-14 18:33 | DRG 637 ==
LOC: ED 13:31 → SUATTDRO 16:39 → 1E 16:39 → 3N 01-13 18:06